=== PATIENT | female | born 1990 | race Caucasian/White ===

== ENCOUNTER 2019-09-02 14:30 | Outpatient (CLI) | payer OTHER ==
--- NOTE | 2019-09-02 14:04 | SLEEP CARE CONSULTATION ---
Information from patient questionnaire entered by Christel Guerra. I have reviewed and concur with the information entered by Christel Guerra. This document represents the service I personally performed and the decisions made by me, Cherie Sena MD, [facility]. History of Present Illness Service Date and Time: 09/02/2019 1400 Reason for Visit: New patient Chief Complaint: reports: Unrefreshed sleep, Snoring, Excessive daytime sleepiness, Observed pauses in breathing, Fatigue, Frequent awakenings at night Duration of Symptoms: 8 months Usual bedtime: 8 - 9 pm (shift changes often) Time it takes to fall asleep: 60-180 minutes Snores at night: Yes Observed to quit breathing while asleep: Yes Sleeps alone due to snoring: No (no spouse/partner) Number of times waking at night: 2-4 Reasons for waking at night: reports: Snoring, Gasping for air Toss, Turn, or Twitch while sleeping: Yes Recalls having dreams: No Usually gets out of bed at: 4 - 4:30 am Feels refreshed in the morning: No Morning headache: No Sleepy or fatigued during the day: Yes Ever fallen asleep while driving: No Takes day naps: Yes Dreams during day naps: No Prior sleep studies: No Additional HPI information: I had the pleasure of seeing Ms. Ayala today regarding the possibility of her having a sleep disorder. As you know, she is a 29 year old lady who complains of loud snore, frequent awakenings, unrefreshed sleep, and excessive daytime sleepiness for the past 8 months. The patient tells me that she normally goes to bed around 8 - 9 pm, and it takes her approximately 1 - 3 hours to fall asleep. She has been told that she snores loudly and irregularly at night. She has also been observed to stop breathing in her sleep. Her bed partner can still sleep in the same bed. She can recall waking up on the average of 2 - 4 times during the night. Most of the time she wakes up because of her own snoring, choking, and having to gasp for air. There is not a lot of tossing and turning in her sleep. No somniloquy (sleep talking) or somnambulism (sleep walking). Generally there is no recollection of dreams. In the morning she usually gets up out of the bed around 4 4:30 a.m. not feeling refreshed nor rested. She usually does not have a morning headache. During the day she complains of feeling sleepy and fatigued. Her score on [place] Sleepiness Scale is 14 out of 24. She has never fallen asleep while driving nor has had any accident due to sleepiness. She usually takes naps during the day. Upon falling asleep during the day she denies having vivid dreams. She has never had sleep paralysis, experienced cataplexy but symptoms of restless leg syndrome. She reports having impaired concentration during the day. - Parasomnia Symptoms Ever been unable to move upon waking from sleep: No Ever felt weak in the knees when startled or emotional: No Bothered by creepy, crawly, restless sensations in legs: Yes Problems with memory or concentration: Yes Subjective Initial [place] Sleepiness Scale score: 14 Social History The patient's occupation is a [employer]. Patient is Single and lives in [place]. Have you smoked in the past 12 months: No Alcohol use: Yes Alcohol amount and frequency: 1 drink once a week, if that Caffeine use: Yes Caffeine amount and frequency: 1-2 cups of coffee in the morning Family History Family history of sleep disordered breathing: Yes Family Hx Sleep Apnea: Father: Snoring, Sleep apnea - Treated Allergies and Home Medications Drug allergies reviewed: Yes (NKDA) Home medication list reviewed: Yes (none) Review of Systems Weight gain over past 5 years: 30-40 Cardiovascular: reports: palpitations Respiratory: reports: shortness of breath Ear/Nose/Throat: reports: wisdom teeth removed Endocrine: reports: sluggishness, unexplained weakness Musculoskeletal: reports: neck pain, back pain, muscle pain or cramping Immunologic: reports: sneezing Physical Exam Height: 5 ft 5 in Weight: 175 lb Body Mass Index: 29.1 BMI Classification: Overweight Impression and Plan IMPRESSION: 1. Obstructive Sleep Apnea-Hypopnea Syndrome, as suggested by history of loud and irregular snoring, observed cessation of breath while asleep, frequent awakenings during the night, unrefreshed sleep, cognitive impairment, and daytime hypersomnolence. Narrow oropharynx and obesity are common predisposing factors for obstructive sleep apnea-hypopnea syndrome. Pathophysiology of sleep-disordered breathing was discussed. I recommend proceeding to polysomnography to confirm the diagnosis and to assess severity. If she has significant sleep disordered breathing, a manual CPAP titration study will also be performed to find the optimal treatment pressure. I informed the patient of what the sleep studies involve and after some discussion, she agreed to proceed. Plan: 1. Schedule polysomnography + manual CPAP titration study. 2. Avoid long distance driving or when feeling sleepy. 3. Avoid alcohol, sedative and muscle relaxant around bedtime. 4. Attempt to lose weight. 5. Return in 1 to 2 weeks after the study to discuss results and initiate therapy. Video Type: Qudini Patient Location: Home Location of Provider: Home Patient agrees and consents to this telehealth visit type: Yes Patient agrees to have their insurance billed: Yes Time Spent with Patient (minutes): 15
== END 2019-09-02 14:31 | disposition home or self-care (01) ==
LOC: SC 14:30
PROVIDERS: ATTEND Internal Medicine Pulmonary Disease
DX: R06.83 Snoring (principal); G47.8 Other sleep disorders; R06.81 Apnea, not elsewhere classified; G47.10 Hypersomnia, unspecified; G47.00 Insomnia, unspecified; R53.83 Other fatigue; E66.3 Overweight; Z68.29 Body mass index [BMI] 29.0-29.9, adult

== ENCOUNTER 2019-10-07 19:11 | Outpatient (CLI) | payer OTHER | END 2019-10-07 19:12 | disposition home or self-care (01) | LOC: SC 19:11 | PROVIDERS: ATTEND Internal Medicine Pulmonary Disease | DX: G47.33 Obstructive sleep apnea (adult) (pediatric) (principal) | CPT/HCPCS: 95810 ==

== ENCOUNTER 2019-10-29 09:32 | Outpatient (CLI) | payer OTHER ==
--- NOTE | 2019-10-29 09:37 | SLEEP CARE CONSULTATION ---
History of Present Illness Service Date and Time: 10/29/2019 0932 Initial [place] Sleepiness Scale score: 14 Additional HPI information: To minimize the risk of COVID-19 exposure, the patient has requested and consented to this telephone visit. The patient also agrees to having her insurance billed. HPI: Ms. Ayala was called for follow up of the sleep study she had on 10-07-19. The polysomnography showed that the patient had normal sleep efficiency. Despite moderate sleep fragmentation, the sleep architecture was normal as well. Respiratory monitoring showed moderate obstructive sleep apnea- hypopnea (AHI = 17.6) associated with frequent arousals, oxyhemoglobin desaturation and mild hypoxia (ariel oxygen saturation of 87%). The respiratory events occurred almost exclusively during supine sleep (supine AHI = 25.3; non- supine = 3.77). Snore was loud in intensity. There was no significant periodic leg movement of sleep. Cardiac rhythm was normal sinus rhythm without significant arrhythmia. No abnormal behavior (parasomnia) observed during the night. The patient was informed of these findings. I explained to her the pathophysiology behind obstructive sleep apnea. We then spent quite a bit of time discussing different treatment options. For mild obstructive sleep apnea, surgery and oral appliance are alternatives to nasal CPAP therapy but in moderate or severe cases, nasal CPAP is the most effective and reliable treatment. After some discussion, she opted to go with the nasal CPAP therapy. I explained to her how CPAP machine works and what to expect when using the machine. IMPRESSION: 1. Obstructive Sleep Apnea-Hypopnea Syndrome, moderate, associated with mild hypoxemia and sleep fragmentation. Most likely, this is the cause of the patients symptoms of unrefreshed sleep, and excessive daytime sleepiness. As mentioned above, the patient will be scheduled for a manual CPAP/BiPAP titration study. PLAN: 1. Schedule a manual CPAP/BiPAP titration study. 2. Attempt to lose weight. 3. Be careful when driving until her sleepiness resolves completely on nasal CPAP therapy. 4. Return for follow up after the titration study. I spent 100% of the 15 minute phone call with the patient with greater than 50% of this spent counseling the patient and coordination of care. The patient was at home and the provider was in the office. Physical Exam Height: 5 ft 5 in Impression and Plan Visit Type: Telehealth Video Video Type: Chikka Patient Location: Home Location of Provider: Office Patient agrees and consents to this telehealth visit type: Yes Patient agrees to have their insurance billed: Yes Time Spent with Patient (minutes): 15 Provider Statement: I spent 100% of the Telehealth Video Call with the patient with greater than 50% spent counseling the patient and coordination of care.
== END 2019-10-29 09:33 | disposition home or self-care (01) ==
LOC: SC 09:32
PROVIDERS: ATTEND Internal Medicine Pulmonary Disease
DX: G47.33 Obstructive sleep apnea (adult) (pediatric) (principal)

== ENCOUNTER 2019-12-27 20:30 | Outpatient (CLI) | payer OTHER | END 2019-12-27 20:31 | disposition home or self-care (01) | LOC: SC 20:30 | PROVIDERS: ATTEND Internal Medicine Pulmonary Disease | DX: G47.33 Obstructive sleep apnea (adult) (pediatric) (principal) | CPT/HCPCS: 95811 ==

== ENCOUNTER 2020-01-16 11:41 | Outpatient (CLI) | payer OTHER ==
--- NOTE | 2020-01-16 12:04 | SLEEP CARE CONSULTATION ---
Information from patient questionnaire entered by Christel Guerra. I have reviewed and concur with the information entered by Christel Guerra. This document represents the service I personally performed and the decisions made by , Mindy Patel ARNP. History of Present Illness Service Date and Time: 01/16/2020 1141 Initial [place] Sleepiness Scale score: 14 (in 2019) Current [place] Sleepiness Scale score: 12 Additional HPI information: [facility] retruns for follow up of the sleep study with a manual CPAP titration study performed on 12-27-19. The patient was informed of the following polysomnography findings: I explained that the optimal CPAP pressure is 10 cm H2O. I explained how CPAP machine works with sample devices [employer] Dreamstation and [employer] [id number] and what to expect when using the machine. Using CPAP every night in order to get used to it was emphasized. Patient advised to put CPAP mask on before getting into bed so as not to fall asleep without CPAP. To assist acclimation to CPAP use, it could also be used for a short time during day while reading or watching TV. The patient was instructed to call the CPAP supplier to discuss any mechanical problem that may occur. If the mask given is uncomfortable or is difficult to keep on through the night even with adjustment, contact the CPAP supplier as many will replace with another mask style if notified before 30 days. If snoring or perceives is not getting enough air or too much air from the machine, notify this office. [facility] patient education PAP tips reviewed and given to patient. Patient does not drink alcohol right now because she is 9 weeks with her first child. Patient was cautioned about risks of drowsy driving until sleepiness symptoms resolve. Sleep Study - Results Type of Sleep Study: Polysomnography (titration) Prior sleep studies: No Polysomnography/Home Sleep Study results: IMPRESSION: The quality of the study is good. CPAP was initiated at 4 cmH2O and titrated up to CPAP at 11 cmH2O. CPAP at 10 cmH2O appeared to be optimal (AHI of 0 per hour on the pressure). There was supine REM sleep on the pressure. Oxygen saturation was normal throughout the night. Lower CPAP settings appeared adequate as well. The patient appeared to have tolerated positive airway pressure therapy very well. The patients sleep efficiency was normal. The sleep architecture was also normal.. There was no significant periodic leg movement of sleep. Cardiac rhythm was normal sinus rhythm without significant arrhythmia. No abnormal behavior (parasomnia) observed during the night. Allergies and Home Medications Drug allergies reviewed: Yes (NKDA) Home medication list reviewed: Yes (no changes) Review of Systems Review of systems same as previous: Yes (no changes, 9 weeks ) Physical Exam Heart Rate: 91 O2 Saturation: 98 Height: 5 ft 5 in Weight: 191 lb Body Mass Index: 31.8 BMI Classification: Obese Impression and Plan 1. Obstructive Sleep Apnea-Hypopnea Syndrome, moderate. Her titration study showed good control of her apnea at 10 cm H2O. Positive pressure therapy could benefit her overall health. Patient is 9 weeks . The patient will be started on nasal autoCPAP therapy with pressure set at 5-10 cmH2O. Compliance guidelines also reviewed. A copy of compliance guidelines will be given for reference at check out. Because the apnea is more severe supine, I instructed to avoid sleeping supine using pillow positioning until able to start CPAP use. * Nasal auto CPAP therapy, pressure at 5-10 cm H2O. * Avoid supine sleep until using CPAP. * The patient is again cautioned about driving until sleepiness completely resolves. * Return one month after CPAP obtained. I will assess response to therapy and compliance at that time. Visit Type: In Office Time Spent with Patient (minutes): 15 Provider Statement: I spent 100% of the Face to Face Visit with the patient with greater than 50% spent counseling the patient and coordination of care.
== END 2020-01-16 11:42 | disposition home or self-care (01) ==
LOC: SC 11:41
PROVIDERS: ATTEND Nurse Practitioner Family
DX: G47.33 Obstructive sleep apnea (adult) (pediatric) (principal); E66.9 Obesity, unspecified; Z68.31 Body mass index [BMI] 31.0-31.9, adult
CPT/HCPCS: 99212; 99213

== ENCOUNTER 2020-03-26 10:34 | Outpatient (CLI) | payer OTHER ==
--- NOTE | 2020-03-26 11:13 | SLEEP CARE CONSULTATION ---
Information from patient questionnaire entered by Christel Guerra. I have reviewed and concur with the information entered by Christel Guerra. This document represents the service I personally performed and the decisions made by , Mindy Patel ARNP. History of Present Illness Service Date and Time: 03/26/2020 1034 Previous diagnosis: Moderate, Obstructive Sleep Apnea-Hypopnea Syndrome AHI: 17.6 (in 2019) Reason for follow up: first compliance Equipment type: CPAP Equipment obtained from: [employer] (no further supplies received yet) Mask style: Nasal Backup mask available: Yes (other mask) Last cushion change: 6 week Prior sleep studies: Yes Year and Where: 2019 - [facility] Type of Sleep Study: Polysomnography HPI additional information: [facility] was diagnosed to have moderate, AHI 17.6, obstructive sleep apnea-hypopnea syndrome and returned today for CPAP therapy first compliance follow-up. CPAP Compliance Data - Data Reviewed with Patient Average duration of nightly device use: 7 hours 6 minutes Compliance rate %: 96.7 Current pressure setting (cmH2O): 5-10 Humidity settin Heated hose settin Average residual AHI: 2.1 Average large leak: 0 seconds Subjective Missed days of use due to: reports: travel Patient concerns: reports: condensation in mask/hose. denies: aerophagia, mask discomfort, air blowing in eyes, mask leak noise, nasal congestion, dry mouth, nose, throat, epistaxis, other Observed to snore while using device: No Current pressure setting perceived as: comfortable On therapy, patient: reports: sleeping better, awakening more refreshed, being more awake and alert during the day, more rested overall. denies: drowsiness while driving Initial [place] Sleepiness Scale score: 14 (in 2019) Current [place] Sleepiness Scale score: 2 Allergies and Home Medications Drug allergies reviewed: Yes (NKDA) Home medication list reviewed: Yes (no changes) Review of Systems Review of systems same as previous: Yes (no changes, 19 weeks) Physical Exam Heart Rate: 105 O2 Saturation: 98 Height: 5 ft 5 in Weight: 207 lb Body Mass Index: 34.4 BMI Classification: Obese Impression and Plan 1. Obstructive Sleep Apnea-Hypopnea Syndrome, moderate, with good treatment compliance and good apnea control. On CPAP therapy, the patient has better sleep quality and is more rested overall. Patient is 19 weeks . She has had some issue with condensation in the mask. I instructed patient on how to adjust her humidity and heated hose to reduce condensation. She voiced understanding. I will keep patient pressure at the 5-19 cmH2O since she is doing well and this should accommodate for weight gain during her . Patient's apnea severity and rationale for treatment to reduce apnea, improve sleep quality and reduce cardiovascular and cerebrovascular events was reviewed. * Continue autoCPAP pressure at 5-10 cmH2O * Notify me if snoring with mask or feeling that the pressure is too much or too little * Attempt to lose weight * Call this office if any problems using CPAP * Return for follow up in 3 months, or sooner if concerns arise Counseling Topics: Spare mask Visit Type: In Office Time Spent with Patient (minutes): 18 Provider Statement: I spent 100% of the Face to Face Visit with the patient with greater than 50% spent counseling the patient and coordination of care.
== END 2020-03-26 10:35 | disposition home or self-care (01) ==
LOC: SC 10:34
PROVIDERS: ATTEND Nurse Practitioner Family
DX: G47.33 Obstructive sleep apnea (adult) (pediatric) (principal); E66.9 Obesity, unspecified; Z68.34 Body mass index [BMI] 34.0-34.9, adult
CPT/HCPCS: 99212; 99213

== ENCOUNTER 2020-03-29 08:30 | Outpatient (CLI) | payer OTHER ==
--- NOTE | 2020-03-29 17:45 | Ultrasound Report ---
PROCEDURE: OB Detailed Eval INDICATIONS: SCREENING OUTSIDE/PRIOR DATING DATA: Last menstrual period (LMP): Unknown. LMP-based estimated date of delivery (KATHERINE): Unknown at this time. First dating scan (date and location): [facility]- Requested. Estimated date of delivery (KATHERINE) from first dating scan: 08/16/2020 based on today's ultrasound. TECHNIQUE: Real-time scanning was performed of the fetus, with image documentation and biometric measurements. Endovaginal scanning: Not performed COMPARISON: None available. FINDINGS: General: A single living intrauterine gestation is present. Presentation: Variable Placenta: Placental position is posterior, without previa. Amniotic fluid index: 14 cm, normal for gestational age. heart rate: 40 beats per minute. Maternal cervical canal: 6 cm long; normal length is 2.5 cm or more. No funneling. biometrics: Biparietal diameter: 4.6 cm, 19 weeks 5 days Head circumference: 17.5 cm, 20 weeks 0 days Abdominal circumference: 15.1 cm, 20 weeks 2 days Femur length: 13.1 cm, 19 weeks 4 days Estimated gestational age from initial scan: Unknown at this time. Composite gestational age from present scan: 20 weeks 0 days Estimated weight: 324 g Measurement variability in biometric dating: +/- 10 days from 12-20 weeks gestation, +/- 2 weeks from 20-30 weeks gestation, +/- 3 weeks at 30 weeks gestation or later. Anatomic survey: Neuro: Ventricles are normal at less than 10 mm. Cisterna magna is normal at 3-11 mm. Cerebellum i s normal in size and morphology. Nuchal skin fold: Normal at less than 6 mm between 14 and 20 weeks gestational age. Face: Nose and lips, facial profile are normal. Spine: No evidence for spina bifida. Heart: 4-chambered heart is present, with normal ventricular outflow tracts. Diaphragm: Diaphragm is intact. Stomach: Left-sided stomach is present. Kidneys: No hydronephrosis. Normal is less than 5 mm in 2nd trimester, less than 7 mm in 3rd trimester. Cord: 3 vessel cord has orthotopic insertion. Bladder: Normal in size. Extremities: All 4 extremities are visualized. Right ovary corpus luteum measuring 2 cm. Left ovary exophytic anechoic cyst measuring 3.1 x 1.5 x 1. 5 cm. No internal blood flow. IMPRESSION: 1. Monge living intrauterine at 20 weeks 0 days based on today's ultrasound. 2. Normal placenta and amniotic fluid. 3. Normal and complete anatomic survey. 4. Left ovarian simple cyst measuring 2.1 cm. Right corpus luteum measuring 2 cm. Reviewed by: Mehdi Seo MD on 03/29/2020 4:44 PM [facility] Approved by: Mehdi Seo MD on 03/29/2020 4:44 PM [facility] Station ID: [id number]
== END 2020-03-29 08:31 | disposition home or self-care (01) ==
LOC: DI 08:30
PROVIDERS: ATTEND Nurse Practitioner Obstetrics & Gynecology
DX: Z36.89 Encounter for other specified antenatal screening (principal)

== ENCOUNTER 2020-05-01 14:47 | Emergency (ER) | payer OTHER ==
--- NOTE | 2020-05-01 15:40 | ED Physician Documentation ---
History of Present Illness - Stated complaint Stated Complaint: CARBON MONOXIDE EXPOSURE - Chief complaint Chief Complaint: General - History obtained from History obtained from: Patient - History of Present Illness Timing: Today Pain level max: 0 Pain level now: 0 - Additonal information Additional information: Patient is a 30-year-old female, 24 weeks who presents to the emergency department after her carbon monoxide detector went off yesterday at home. She has been asymptomatic. She states that there is potentially decreased movement today, therefore came in for evaluation. No vaginal bleeding or discharge. Nothing makes it better or worse Review of Systems Constitutional: denies: Fever, Chills Respiratory: denies: Cough GI: denies: Vomiting, Diarrhea Skin: denies: Rash Musculoskeletal: denies: Neck pain, Back pain Neurologic: denies: Headache PD PAST MEDICAL HISTORY - Past Medical History Past Medical History: No - Past Surgical History Past Surgical History: No - Allergies Allergies/Adverse Reactions: Allergies Allergy/AdvReac Type Severity Reaction Status Date / Time No Known Drug Allergies Allergy Verified 05/01/20 14:53 - Living Situation Living Arrangement: reports: At home PD ED PE NORMAL - Vitals Vital signs reviewed: Yes - General General: Alert and oriented X 3, No acute distress - HEENT HEENT: Moist mucous membranes - Neck Neck: Supple, no meningeal sign - Cardiac Cardiac: RRR - Respiratory Respiratory: No respiratory distress, Clear bilaterally - Abdomen Abdomen: Soft, Non tender, Other (Gravid) - Derm Derm: Warm and dry - Extremities Extremities: No edema, No calf tenderness / cord - Neuro Neuro: Alert and oriented X 3 - Psych Psych: Normal mood, Normal affect Results - Vitals Vitals: Vital Signs - 24 hr 05/01/20 14:49 Temperature 36.8 C Heart Rate 111 H Respiratory 18 Rate Blood Pressure 140/89 H O2 Saturation 98 Oxygen O2 Source Room air - Labs Labs: Laboratory Tests 05/01/20 15:03 VBG Total Hgb 11.9 L VBG Oxyhemoglobin 55 L VBG Carboxyhemoglobin 0.9 VBG Methemoglobin 0.3 PD MEDICAL DECISION MAKING - ED course Complexity details: considered differential, d/w patient ED course: Normal carbon monoxide levels here. Normal heart tones. Discussed the case with Dr. Tay, OB on-call, no indication for NST at this time. Especially given the patient's gestational age, would likely be of little to no benefit. Patient counseled regarding signs and symptoms for which I believe and urgent re-evaluation would be necessary. Patient with good understanding of and agreement to plan and is comfortable going home at this time This document was made in part using voice recognition software. While efforts are made to proofread this document, sound alike and grammatical errors may occur. Departure - Departure Disposition: 01 Home, Self Care Clinical Impression: Carbon monoxide exposure Condition: Good Instructions: ED CO Poisoning Follow-Up: Evelin Tay MD [Provider Admit Priv/Credential] - Within 1 week Comments: Your carbon monoxide levels are normal. Your heart rate is normal. The case was discussed with OB on-call, Dr. Tay. She will follow you up in the office. Return if you worsen
[2020-05-01 15:45] VITALS: BP 121/76
== END 2020-05-01 15:46 | disposition home or self-care (01) ==
LOC: ED 14:47
DX: O9A.211 Injury, poisoning and certain other consequences of external causes complicating pregnancy, first trimester (principal); T58.91XA Toxic effect of carbon monoxide from unspecified source, accidental (unintentional), initial encounter; Z3A.24 24 weeks gestation of pregnancy
CPT/HCPCS: 36415; 82375; 99283

== ENCOUNTER 2020-05-20 08:00 | Outpatient (CLI) | payer OTHER ==
[2020-05-20 10:00] LABS: HGB - HEMOGLOBIN 10.9 g/dL (12.0-16.0); MEAN CORPUSCULAR HEMOGLOBIN 30.9 pg (27.0-31.0); MEAN CORPUSCULAR HGB CONC 31.5 g/dL (32.0-36.0); MEAN PLATELET VOLUME 9.4 fL (7.9-10.8); RED BLOOD COUNT 3.53 10^6/uL (4.20-5.40); RED CELL DISTRIBUTION WIDTH 14.5 % (12.0-15.0); WHITE BLOOD COUNT 16.9 x10^3/uL (4.8-10.8)
== END 2020-05-20 23:59 | disposition home or self-care (01) ==
LOC: LAB 08:00
PROVIDERS: ATTEND Obstetrics & Gynecology
DX: Z34.90 Encounter for supervision of normal pregnancy, unspecified, unspecified trimester (principal)
CPT/HCPCS: 36415; 82950; 85027

== ENCOUNTER 2020-05-27 08:00 | Outpatient (CLI) | payer OTHER | END 2020-05-27 23:59 | disposition home or self-care (01) | LOC: LAB 08:00 | PROVIDERS: ATTEND Obstetrics & Gynecology | DX: O99.810 Abnormal glucose complicating pregnancy (principal) | CPT/HCPCS: 36415; 82951; 82952 ==

== ENCOUNTER 2020-06-11 15:32 | Outpatient (CLI) | payer OTHER ==
--- NOTE | 2020-06-13 14:03 | Ultrasound Report ---
PROCEDURE: OB F/U or Repeat INDICATIONS: UTERINE SIZE-DATE DISCREPANCY OUTSIDE/PRIOR DATING DATA: Last menstrual period (LMP): Unknown LMP-based estimated date of delivery (KATHERINE): Unknown. First dating scan (date and location): [facility]. Estimated date of delivery (KATHERINE) from first dating scan: 08/16/2020 based on prior OB ultrasound. TECHNIQUE: Real-time scanning was performed of the fetus, with image documentation and biometric measurements. Endovaginal scanning: No COMPARISON: 03/29/2020 FINDINGS: General: A single living intrauterine gestation is present. Presentation: Cephalic Placenta: Placental position is posterior, without previa. Amniotic fluid index: 20.5 cm, 87th percentile for gestational age. heart rate: 121 beats per minute. Maternal cervical canal: 4.5 cm long; normal length is 2.5 cm or more. biometrics: Biparietal diameter: 82 mm; 33 weeks 0 days Head circumference: 295 mm; 32 weeks 4 days Abdominal circumference: 290 mm; 33 weeks 0 days Femur length: 55 mm; 29 weeks 1 day Estimated gestational age from initial scan: not applicable. Composite gestational age from present scan: 32 weeks 0 days Estimated weight and percentile: 1842 g, which is at the 83rd percentile for gestational age Measurement variability in biometric dating: +/- 10 days from 12-20 weeks gestation, +/- 2 weeks from 20-30 weeks gestation, +/- 3 weeks at 30 weeks gestation or more. Other: Not applicable. IMPRESSION: 1. Single living intrauterine gestation. 2. Estimated weight is at the 83rd percentile for gestational age. 3. Amniotic fluid index is at the 86th percentile for gestational age. Reviewed by: Deon Elizalde MD on 06/13/2020 1:02 PM [facility] Approved by: Deon Elizalde MD on 06/13/2020 1:02 PM [facility] Station ID: [id number]
== END 2020-06-11 15:33 | disposition home or self-care (01) ==
LOC: DI 15:32
PROVIDERS: ATTEND Nurse Practitioner Obstetrics & Gynecology
DX: O26.843 Uterine size-date discrepancy, third trimester (principal); Z3A.32 32 weeks gestation of pregnancy

== ENCOUNTER 2020-06-22 09:59 | Outpatient (CLI) | payer OTHER ==
--- NOTE | 2020-06-22 10:23 | SLEEP CARE CONSULTATION ---
Information from patient questionnaire entered by Christel Guerra. I have reviewed and concur with the information entered by Christel Guerra. This document represents the service I personally performed and the decisions made by me, Cherie Sena MD, [facility]. History of Present Illness Service Date and Time: 06/22/2020 0959 Previous diagnosis: Moderate, Obstructive Sleep Apnea-Hypopnea Syndrome AHI: 17.6 (in 2019) Reason for follow up: three month Equipment type: CPAP Equipment obtained from: [facility] (no further supplies received yet) Mask style: Nasal Prior sleep studies: Yes Year and Where: 2019 - [facility] Type of Sleep Study: Polysomnography HPI additional information: HPI: Ms. Ayala was diagnosed to have moderate obstructive sleep apnea- hypopnea syndrome and prescribed with a CPAP device. She returned today for follow up of CPAP therapy. The patient purchased the device from [facility] and was fitted with Respironics DreamWisp nasal mask. She uses the device nightly and all through the night. The compliance data show usage in 87 out of the past 90 nights, averaging 6.3 hours a night. The residual AHI is 3.4; and average air leak is 0 L/minute. She complains of no particular problem such as dry throat, facial soreness, aerophagia, sinus pain, or nasal congestion. She thinks that the current pressure of 5 - 10 cmH2O seems alright. Since she started using the CPAP device she noticed significant improvement in her sleep quality, and that she wakes up feeling fresher in the morning and more awake/alert during the day. [place] Sleepiness Scale score is 3. CPAP Compliance Data - Data Reviewed with Patient Average duration of nightly device use: 6 hr 18 min Compliance rate %: 88.9 (90 days) Current pressure setting (cmH2O): 5-10 Humidity settin Heated hose settin Average residual AHI: 3.4 Average large leak: 0 Subjective Missed days of use due to: reports: other () Current pressure setting perceived as: comfortable Initial [place] Sleepiness Scale score: 14 (in 2019) Current [place] Sleepiness Scale score: 3 Allergies and Home Medications Drug allergies reviewed: Yes Home medication list reviewed: Yes Review of Systems Review of systems same as previous: Yes (except being ) Physical Exam Height: 5 ft 1 in Weight: 200 lb Body Mass Index: 37.8 BMI Classification: Obese Impression and Plan IMPRESSION: 1. Obstructive Sleep Apnea-Hypopnea Syndrome, moderate (AHI was 17.6), with the patient doing very well on the CPAP therapy. She good compliance. The current pressure setting appears effective and comfortable. No adjustment is necessary today. PLAN: 1. Continue with autoCPAP set at 5 - 10 cm H2O. 2. Try Respironics DreamWear nasal cushion mask and ResMed N30i mask. 3. Return in one year for follow up or earlier if there is any problem with the treatment. Follow up recommended for: Weight management Visit Type: In Office Time Spent with Patient (minutes): 15 Provider Statement: I spent 100% of the Face to Face Visit with the patient with greater than 50% spent counseling the patient and coordination of care.
== END 2020-06-22 10:00 | disposition home or self-care (01) ==
LOC: SC 09:59
PROVIDERS: ATTEND Internal Medicine Pulmonary Disease
DX: G47.33 Obstructive sleep apnea (adult) (pediatric) (principal); E66.9 Obesity, unspecified; Z68.37 Body mass index [BMI] 37.0-37.9, adult
CPT/HCPCS: 99212

== ENCOUNTER 2020-07-21 07:33 | Outpatient (CLI) | payer OTHER ==
--- NOTE | 2020-07-21 15:17 | Ultrasound Report ---
PROCEDURE: OB F/U or Repeat INDICATIONS: UTERINE SIZE-DATE DISCREPANCY, 3RD TRIMESTER OUTSIDE/PRIOR DATING DATA: Last menstrual period (LMP): Unknown. LMP-based estimated date of delivery (KATHERINE): Not applicable. First dating scan (date and location): Per provider, 01/22/2020 [facility]. Estimated date of delivery (KATHERINE) from first dating scan: 08/17/2020 provider stated. TECHNIQUE: Real-time scanning was performed of the fetus, with image documentation and biometric measurements. Endovaginal scanning: Not performed COMPARISON: 03/29/2020, 06/11/2020 FINDINGS: General: A single living intrauterine gestation is present. Presentation: Vertex Placenta: Placental position is fundal, without previa. Amniotic fluid index: 13.9 cm, normal for gestational age. 8.7 cm the largest pocket heart rate: 145 beats per minute. Maternal cervical canal: 3.6 cm long; normal length is 2.5 cm or more. biometrics: Biparietal diameter: 9.4 cm, 38 weeks, 2 days 97th percentile Head circumference: 33.3 cm, 38 weeks, 1 day 68th percentile Abdominal circumference: 34.6 cm, 38 weeks, 3 days 98th percentile Femur length: 6.67 m, 34 weeks, 0 days 5th percentile Estimated gestational age from initial scan: 36 weeks, 1 day. Composite gestational age from present scan: 37 weeks, 2 days Estimated weight and percentile: 3194 g, 83rd percentile Measurement variability in biometric dating: +/- 10 days from 12-20 weeks gestation, +/- 2 weeks from 20-30 weeks gestation, +/- 3 weeks at 30 weeks gestation or more. Other: Not applicable. IMPRESSION: 1. Single living intrauterine . 2. There has been asymmetric growth since the initial 20 week ultrasound with abnormally short femur length and large head and abdominal measurements. This should be correlated with biparental height. S keletal dysplasias cannot be excluded. 3. Normal amniotic fluid volume. Reviewed by: Ann-Marie Velazquez MD on 07/21/2020 2:15 PM IRA Approved by: Ann-Marie Velazquez MD on 07/21/2020 2:15 PM AKTATIANA Station ID: [id number]
== END 2020-07-21 07:34 | disposition home or self-care (01) ==
LOC: DI 07:33
PROVIDERS: ATTEND Advanced Practice Midwife
DX: O26.843 Uterine size-date discrepancy, third trimester (principal); Z3A.37 37 weeks gestation of pregnancy

== ENCOUNTER 2020-07-27 08:00 | Outpatient (CLI) | payer OTHER | END 2020-07-27 23:59 | disposition home or self-care (01) | LOC: LAB.R 08:00 | PROVIDERS: ATTEND Advanced Practice Midwife | DX: Z34.90 Encounter for supervision of normal pregnancy, unspecified, unspecified trimester (principal); Z36.89 Encounter for other specified antenatal screening | CPT/HCPCS: 87797 ==

== ENCOUNTER 2020-08-08 14:51 | Outpatient (CLI) | payer OTHER ==
[2020-08-08 15:56] LABS: BASOPHILS # (AUTO) 0.1 10^3/uL (0.0-0.1); BASOPHILS % (AUTO) 0.3 %; EOSINOPHILS # (AUTO) 0.3 10^3/uL (0.0-0.7); EOSINOPHILS % (AUTO) 2.3 %; HGB - HEMOGLOBIN 12.2 g/dL (12.0-16.0); LYMPHOCYTES # (AUTO) 2.2 10^3/uL (1.5-3.5); LYMPHOCYTES % (AUTO) 14.6 %; MEAN CORPUSCULAR HEMOGLOBIN 30.7 pg (27.0-31.0); MEAN CORPUSCULAR VOLUME 93.2 fL (81.0-99.0); MEAN PLATELET VOLUME 9.7 fL (7.9-10.8); MONOCYTES # (AUTO) 0.9 10^3/uL (0.0-1.0); MONOCYTES % (AUTO) 5.9 %; NEUTROPHILS # (AUTO) 11.1 10^3/uL (1.5-6.6); NEUTROPHILS % (AUTO) 74.3 %; PLT - PLATELET COUNT 260 10^3/uL (130-450); RED BLOOD COUNT 3.97 10^6/uL (4.20-5.40); RED CELL DISTRIBUTION WIDTH 15.9 % (12.0-15.0)
[2020-08-08 16:09] LABS: ALBUMIN 2.9 g/dL (3.2-5.5); ALBUMIN/GLOBULIN RATIO 0.7 (1.0-2.2); BILIRUBIN,TOTAL 0.4 mg/dL (0.2-1.0); CALCIUM 9.3 mg/dL (8.5-10.3); CREATININE 0.7 mg/dL (0.4-1.0); POTASSIUM 3.8 mmol/L (3.5-5.0); TOTAL PROTEIN 6.9 g/dL (6.7-8.2)
[2020-08-08 16:30] LABS: CREATININE,URINE 17.4 mg/dL
[2020-08-08 16:38] LABS: TOTAL PROTEIN,URINE TIMED < 6 mg/dL
[2020-08-08 16:49] VITALS: BP 111/73
--- NOTE | 2020-08-09 09:38 | PROVIDER PROGRESS NOTE ---
- HPI Chief Complaint: Decreased movement Current : Current EDU 08/20/20 Gestation 38 Weeks and 2 Days 1 Para 0 Vital Signs Blood Pressure 145/85 H 08/08/20 15:05 Temperature 36.9 C 08/08/20 15:22 Heart Rate 100 08/08/20 15:22 Respiratory Rate 18 08/08/20 15:22 Blood Pressure 111/73 08/08/20 16:49 O2 Saturation 100 08/08/20 15:22 - Procedures OB Procedure Performed: NST Diagnosis/Indication for NST: Decreased movement NST Procedure: NST Procedure Start Date 08/08/20 Start Time 15:00 Stop Time 15:35 Vibroacoustic Stimulation Used No - Plan Plan: Visit date: 08/08/2020 Pt evaluated face to face. Sapphire is a 30yo @ 38.6wks gestation who presents to [facility] with c/o decreased movement. Upon arrival she was noted to have elevated BPs 140/80s-90s. She reported a mild headache yesterday afternoon when she woke up from a nap which has since resolved. She denies visual disturbances or RUQ pain. Experiencing mild edema to LE's bilaterally however this has been present for the past several weeks and has not gotten progressively worse. She denies vaginal bleeding or leakage of fluid. She reports intermittent BH contractions but nothing overly uncomfortable or consistent. She reports movement has increased since she has been here. O: BP 140/80s-90s NST performed 08/08/2020 NST read 08/08/2020 NST reactive. FHR baseline 135, moderate variability, + accels, no decels Contractions palpate mild, intermittently Normocephalic, atraumatic, heart RRR w/o M/G/R, lungs CTAB, abdomen soft and nontender, no RUQ pain noted, bilateral LE's no edema. SVE deferred. A: 30yo @ 38.6wks gestation Decreased movement Elevated BP without the diagnosis of hypertension FHR Category I P: Closely reviewed PIH warning s/sx and when to present urgently. Plan return to [facility] for BP check tomorrow - if elevated, this will diagnose her with gestational hypertension and she will be admitted for induction of labor. Pt requests elective IOL if BP not elevated and would prefer outpatient cervical ripening as appropriate. Will develop plan of care tomorrow upon her return. Pt has emergency contact number. Reviewed warning s/sx and when to present. Pt verbalized understanding and agrees to above plan. She denies further questions or concerns at this time.
== END 2020-08-08 17:15 | disposition home or self-care (01) ==
LOC: WFO 14:51 → FBP 14:53 → WFO 17:15
PROVIDERS: ATTEND Nurse Practitioner Obstetrics & Gynecology
DX: O36.8130 Decreased fetal movements, third trimester, not applicable or unspecified (principal); Z3A.38 38 weeks gestation of pregnancy; O26.893 Other specified pregnancy related conditions, third trimester; R03.0 Elevated blood-pressure reading, without diagnosis of hypertension
CPT/HCPCS: 36415; 59025; 80053; 82570; 84156; 85025; 99214

== ENCOUNTER 2020-08-09 07:52 | Observation (INO) | payer OTHER ==
[2020-08-09 08:23] VITALS: BP 114/76
[2020-08-09] MEDS ORDERED: miSOPROStoL 100 MCG TABLET BC SCH (08:30)
--- NOTE | 2020-08-09 10:33 | PROVIDER PROGRESS NOTE ---
- HPI Chief Complaint: Hypertension/PIH Current : Current EDU 08/17/20 Gestation 38 Weeks and 6 Days 3 Para 0 Vital Signs Temperature 36.8 C 08/09/20 08:00 Heart Rate 108 H 08/09/20 08:00 Respiratory Rate 17 08/09/20 08:00 Blood Pressure 114/76 08/09/20 08:00 O2 Saturation 100 08/09/20 08:00 Temperature 36.8 C 08/09/20 08:39 Heart Rate 108 H 08/09/20 08:39 Respiratory Rate 17 08/09/20 08:39 Blood Pressure 114/76 08/09/20 08:39 O2 Saturation 100 08/09/20 08:00 - Procedures OB Procedure Performed: NST Diagnosis/Indication for NST: Other NST Procedure: NST Procedure Start Date 08/09/20 Start Time 08:00 Stop Time 08:40 Vibroacoustic Stimulation Used No Patient States Movement Yes Service Date of procedure: 08/09/20 - Plan Plan: Pt evaluated face to face Sapphire is a 30yo @ 39.0wks gestation who presents to [facility] for blood pressure check secondary to elevated BP at her outpatient triage visit. She presented at that time for decreased movement. Her NST was reactive and she did feel increased movement upon arrival. She continues to deny vaginal bleeding or leakage of fluid. She reports +FM today. She denies MULLEN, visual disturbances, RUQ or epigastric pain. Bilateral LE's mild edema which is consistent with what she has been experiencing over the past several weeks. O: BP 114/76; 118/72 NST performed 08/09/2020 NST read 08/09/2020 NST reactive. FHR baseline 135, moderate variability, + accels, no decels Contractions palpate mild every 3-6 minutes with soft resting tone SVE deferred A: 30yo @ 39.0wks gestation Normotensive Elective IOL with pre-induction cervical ripening P: 50mcg BC misoprostol administered for outpatient cervical ripening. Pt continuously monitored x 4 hours after administration Reviewed PIH warning s/sx and when to present. Pt released home with precautions. Return tomorrow morning for elective IOL at 0800 or sooner PRN. Pt verbalized understanding and agrees to above plan. She denies further questions or concerns at this time.
== END 2020-08-09 14:10 | disposition home or self-care (01) ==
LOC: WFO 07:52 → FBP 07:55 → WFO 08:17 → FBP 08:18
PROVIDERS: ADMIT Nurse Practitioner Obstetrics & Gynecology; ATTEND Nurse Practitioner Obstetrics & Gynecology
DX: Z34.83 Encounter for supervision of other normal pregnancy, third trimester (principal)
CPT/HCPCS: 59025; A9270; G0378

== ENCOUNTER 2020-08-10 07:47 | Inpatient (IN) | payer OTHER ==
[2020-08-10] MEDS: SODIUM CHLORIDE FLUSH 0.9% 10 ML SYRINGE IVP SCH ×2 (08:40→18:16)
[2020-08-10] MEDS ORDERED: LIDOCAINE-MPF 1% 30 ML VIAL ID PRN (08:50)
[2020-08-10] MEDS ORDERED: AMPICILLIN 2 GM in SODIUM CHLORIDE 0.9% MINIBAG 100 ML IV ONE (08:50)
[2020-08-10] MEDS ORDERED: ONDANSETRON 4 MG/2 ML VIAL IVP PRN (08:50)
[2020-08-10] MEDS ORDERED: ACETAMINOPHEN 325 MG TABLET PO PRN (08:50)
[2020-08-10] MEDS ORDERED: TRANEXAMIC ACID IN NACL 1,000 MG/100 ML BAG IV PRN (08:50)
[2020-08-10] MEDS ORDERED: miSOPROStoL 200 MCG TABLET BC PRN (08:50)
[2020-08-10] MEDS ORDERED: SODIUM CHLORIDE FLUSH 0.9% 10 ML SYRINGE IVP PRN (08:50)
[2020-08-10] MEDS ORDERED: METOCLOPRAMIDE 10 MG/2 ML VIAL IVP PRN (08:50)
[2020-08-10] MEDS ORDERED: fentaNYL 100 MCG/2 ML VIAL IVP PRN (08:50)
[2020-08-10] MEDS ORDERED: METHYLERGONOVINE 0.2 MG/ML VIAL IM PRN (08:50)
[2020-08-10] MEDS ORDERED: OXYTOCIN/SODIUM CHLORIDE 500 ML IV PRN (08:50)
[2020-08-10] MEDS ORDERED: CARBOPROST TROMETHAMINE 250 MCG/ML AMP IM PRN (08:50)
[2020-08-10] MEDS ORDERED: OXYTOCIN 10 UNIT/ML VIAL IM PRN (08:50)
--- NOTE | 2020-08-10 08:50 | HISTORY & PHYSICAL EXAMINATION ---
Admit History - Visit Reason Visit Reason: Other (IOL) - : 3 Parity: 0 Premature: 0 Ectopic: 0 : 1 Care: positive: Other ([facility]) Risk/History: positive: Other (Abnormal femur length on US) Smoking Status: Never smoker - Mother's Labs Mother's Blood Type: positive: O Mother's RH: positive: Positive GBS: positive: Group B Strep Positive Rubella Status: positive: Immune - Other Maternal History Other Maternal History: -30yo at 39.0wks gestation who presents to Labor and Delivery for pre- induction cervical ripening -Reports movement -Denies ctx/VB/LOF - care with [facility] which has been adequate after transfer from [facility] at 15.4wks - Complications -US finding- shortened femur- no change in plan of care per MFM -HSV positive- prophylaxis at 36 wks- initiated -Initial concern for neurologic event in second trimester (unilateral numbness and weakness)- Cleared by neurology -Dating Criteria -Initial U/S: 01/22/2020 @ 10.3wks/ c/w LMP dating for KATHERINE 08/17/2020 -OB Hx *G1: 2007 SAB *G2: 2013 SAB *G3: Current -Medications * vitamin-daily *Valacyclovir 500mg BID since 36wks *ASA 81mg daily -Allergies *NKDA -Medical History *HSV-2 -Surgical History *Lumbar puncture (2014) *[place] Teeth (2008) -Family History *PGM- Cancer *PGF- Dementia *Father- Diabetes, sleep apnea -Social History *Non contributory - Labs, Immunizations, and Findings Initial U/S: 01/22/2020 @ 10.3wks/ c/w LMP dating for KATHERINE 08/17/2020 O pos/Rubella immune VZV: immune Early 1 hour GTT -93 Genetic testing: Serum integrated screen negative FAS: Reviewed findings. CL 6 cm 3VC, posterior, wnl Growth and JENNIE -JENNIE 20.5, EFW 83%itle. 06/14/2020 Glucola- 1 hr GTT elevated (163) - 3 hour GTT WNL (89, 165, 142, 121) Influenza: 02/25/2020 TDAP 05/19/2020 GBS & GC/CT at 37 weeks- positive IPAP in labor HSV: POSITIVE - acyclovir @ 36wks- started Breast pump Rx provided MOD: Anticipate ; FOB Hong; "wait and see" approach to pain management in labor but feels she would prefer not to have an epidural; It's a GIRL! Gavi gatica contraception: POPs pap: 12/2018 neg; HPV negative (repeat 2023) -SVE : /-3/soft/ant -Vertex by BSUS -EFW by carlee's 8# - Physical Exam: Normocephalic, atraumatic Heart RRR w/o murmur Lungs clear and equal bilaterally Abdomen gravid, soft, nontender Edema- none Psych- wnl -FHTs per flowsheet -Assessment *30 yo at 39.0wks gestation who presents for elective IOL *Dobbs Score 8- appropriate for cervical ripening * Heart Tones- Category I -Plan *Admit to OBS(until active labor, SROM, AROM, epidural, or pitocin) *Cervical ripening with Misoprostol *Monitoring- Continuous *Comfort measures available- position changes, whirlpool tub, fentanyl, and epidural per maternal preference *Diet/Activity- per maternal preference *Anticipate *Due to no COVID swab (send outs) available, will refrain from checking for COVID with rapid test as pt is having no symptoms Meds/Allgy - Allergies Allergies/Adverse Reactions: Allergies Allergy/AdvReac Type Severity Reaction Status Date / Time No Known Drug Allergies Allergy Verified 05/01/20 14:53 Review of Systems - All Other Systems All Other Systems: reports: Reviewed and negative Physical - Monitoring Strip Review: positive: Category I - Presentation Presentation: positive: Vertex - Vaginal Exam Membranes: positive: Membranes intact Dilation (in cm): 2 Effacement (%): 80 Plan for Labor - Plan For Labor I expect patient to be DC'd or transferred within 96 hours.: Yes
[2020-08-10 09:06] LABS: BASOPHILS # (AUTO) 0.1 10^3/uL (0.0-0.1); BASOPHILS % (AUTO) 0.4 %; EOSINOPHILS # (AUTO) 0.3 10^3/uL (0.0-0.7); EOSINOPHILS % (AUTO) 1.9 %; HCT - HEMATOCRIT 37.7 % (37.0-47.0); HGB - HEMOGLOBIN 12.5 g/dL (12.0-16.0); LYMPHOCYTES # (AUTO) 2.2 10^3/uL (1.5-3.5); MEAN CORPUSCULAR HEMOGLOBIN 31.1 pg (27.0-31.0); MEAN CORPUSCULAR HGB CONC 33.2 g/dL (32.0-36.0); MEAN CORPUSCULAR VOLUME 93.8 fL (81.0-99.0); MONOCYTES % (AUTO) 6.4 %; NEUTROPHILS % (AUTO) 73.7 %; PLT - PLATELET COUNT 278 10^3/uL (130-450); RED BLOOD COUNT 4.02 10^6/uL (4.20-5.40); RED CELL DISTRIBUTION WIDTH 15.9 % (12.0-15.0); WHITE BLOOD COUNT 14.9 x10^3/uL (4.8-10.8)
[2020-08-10] MEDS: miSOPROStoL 100 MCG TABLET BC SCH ×4 (09:08→18:16)
[2020-08-10] MEDS: valACYclovir 500 MG TABLET PO SCH ×2 (10:33→20:37)
[2020-08-10] MEDS: LACTATED RINGERS 1,000 ML IV SCH (13:38)
--- NOTE | 2020-08-10 18:20 | PROVIDER PROGRESS NOTE ---
Labor Progress Note - Uterine Monitoring Uterine Monitoring Mode: positive: External toco Contraction Frequency (min/apart): 2-5 Contraction Intensity: positive: Mild Uterine Resting Tone: positive: Soft - Monitoring Monitor Mode: positive: External ultrasound Heart Rate Baseline: 150 Heart Rate Variability: positive: Moderate (6-25 bmp) Accelerations: positive: Present, 15x15 Decelerations: positive: None - Labor Progress Note Labor Progress Note/Additional Text: S: Sapphire is reclining in the chair next to the bed. FOB supportive at bedside. She reports feeling ctx pain as a 3/10, and some of them not at all. Breathing a nd focus are effective for pain management for her at this time. O: S/P miso dose #2, third dose due now A: 30yo at 39.0wks gestation Elective IOL- not yet in active labor Reassuring FHTs Ctx pattern appropriate for miso administration P: Give third dose misoprostol now Continuous monitoring Anticipate
[2020-08-10] MEDS: OXYTOCIN/SODIUM CHLORIDE 500 ML IV SCH (20:20)
[2020-08-11] MEDS: LACTATED RINGERS 1,000 ML IV SCH (00:57)
[2020-08-11] MEDS: AMPICILLIN 1 GM in SODIUM CHLORIDE 0.9% MINIBAG 100 ML IV SCH ×5 (05:02→21:57)
[2020-08-11] MEDS: SODIUM CHLORIDE FLUSH 0.9% 10 ML SYRINGE IVP SCH ×4 (08:59→16:55)
[2020-08-11] MEDS: valACYclovir 500 MG TABLET PO SCH ×2 (09:06→19:57)
[2020-08-11] MEDS: miSOPROStoL 100 MCG TABLET BC SCH ×3 (09:35→17:48)
--- NOTE | 2020-08-11 14:17 | PROVIDER PROGRESS NOTE ---
Labor Progress Note - Uterine Monitoring Uterine Monitoring Mode: positive: External toco Contraction Frequency (min/apart): 3-5 Contraction Intensity: positive: Mild Uterine Resting Tone: positive: Soft - Monitoring Monitor Mode: positive: External ultrasound Heart Rate Baseline: 150 Heart Rate Variability: positive: Moderate (6-25 bmp) Accelerations: positive: Present, 15x15 Decelerations: positive: None Strip Review: positive: Category I - Vaginal Exam Dilation (in cm): 2 Effacement (%): 80 Station: -3 Cervical Position: Anterior - Labor Progress Note Labor Progress Note/Additional Text: S: Spaphire is resting in the chair with FOB supportive at her side. She is feeling contractions much less than last night, and has been able to get a small nap in, but was otherwise unable to sleep last night. She reports the whirlpool tub as "instantly helpful" earlier when struggling with contractions. O: After contraction pattern was outside of protocol for continuing misoprostol, orders were given last night to start pitocin Pitocin started at 2019, up to 9mU/min Hyperstimulation began to occur so pitocin was discontinued at approx 0400 SVE at that time /-3 (unchanged) Pit rest ordered-Contractions continued into the morning Misoprostol restarted, second dose given now Ampicillin >2 doses given A: 30yo at 39.1 weeks- elective IOL Cervical ripening indicated Will consider mcfarland balloon at time of next miso dose Contractions are not indicative of active labor pattern FHT Cat I P: Continuous monitoring Continue misoprostol admin at this time Continue ampicillin admin Anticipate
--- NOTE | 2020-08-11 17:52 | PROVIDER PROGRESS NOTE ---
Labor Progress Note - Uterine Monitoring Uterine Monitoring Mode: positive: External toco Contraction Frequency (min/apart): 3-5 Contraction Intensity: positive: Mild Uterine Resting Tone: positive: Soft - Monitoring Monitor Mode: positive: External ultrasound Heart Rate Baseline: 135 Heart Rate Variability: positive: Moderate (6-25 bmp) Accelerations: positive: Present, 15x15 Decelerations: positive: None Strip Review: positive: Category I - Vaginal Exam Dilation (in cm): 2 Effacement (%): 80 Station: -3 Cervical Position: Anterior - Labor Progress Note Labor Progress Note/Additional Text: S: Sapphire remains comfortable, barely feeling contractions. Just got out of the shower and finished dinner. O: SVE 2/80/-3/soft/ant A: 30yo at 39.1wks gestation No cervical change Not in active labor FHT CAt I P: Suggested mcfarland balloon, however patient declines. Will reassess in 4 hours Give next dose miso now Continuous monitoring Anticipate
--- NOTE | 2020-08-11 18:38 | ANESTHESIA ---
Pre-Anesthesia VS, & Labs - Diagnosis active labor - Procedure labor epidural Vital Signs: Temp Pulse Resp BP Pulse Ox 36.7 C 08/10/20 08:59 Height: 5 ft 1 in Weight (kg): 108.318 kg Body Mass Index: 45.1 BMI Classification: Morbidly Obese - Is Patient ?: Yes - Lab Results Current Lab Results: Laboratory Tests 08/10/20 10:27: Blood Type Recheck O POSITIVE 08/10/20 08:40: Blood Type O POSITIVE, Antibody Screen NEGATIVE 08/10/20 08:40: WBC 14.9 H, RBC 4.02 L, Hgb 12.5, Hct 37.7, MCV 93.8, MCH 31.1 H , MCHC 33.2, RDW 15.9 H, Plt Count 278, MPV 10.0, Neut # (Auto) 11.0 H, Lymph # (Auto) 2.2, [place] # (Auto) 1.0, Eos # (Auto) 0.3, Baso # (Auto) 0.1, Absolute Nucleated RBC 0.00, Nucleated RBC % 0.0 Lab results reviewed: Yes Fish Bones: 08/10/20 08:40 Home Medications and Allergies Active Medications Acetaminophen (Acetaminophen 325 Mg Tablet) 650 mg PO Q6H PRN PRN Reason: Pain or Fever Carboprost Tromethamine (Carboprost Tromethamine 250 Mcg/Ml Amp) 250 mcg IM Q15M PRN PRN Reason: Step 4: Hemorrhage protocol Stop: 08/15/20 08:51 Fentanyl (Fentanyl 100 Mcg/2 Ml Vial) 50 mcg IVP Q1H PRN PRN Reason: PAIN Oxytocin/Sodium Chloride (Pitocin/Sodium Chloride) 500 mls @ 999 mls/hr IV PRN PRN; Protocol PRN Reason: POST- HEMORR PREVENTION Stop: 08/15/20 08:51 Tranexamic Acid (Tranexamic 1,000 Mg/100ml-Nacl) 1,000 mg in 100 mls @ 600 mls/hr IV .ONCE PRN PRN Reason: EBL >1200mL and within 3hr Stop: 08/15/20 08:51 Lactated Ringer's (Lr) 1,000 mls @ 100 mls/hr IV .Q10H HALEY Last Admin: 08/11/20 00:57 Dose: 100 mls/hr Documented by: Oxytocin/Sodium Chloride (Pitocin/Sodium Chloride) 500 mls @ 1 mls/hr IV TITR [facility]; Protocol Last Admin: 08/10/20 20:20 Dose: 1 milliunit/min, 1 mls/hr Documented by: Ampicillin Sodium 1 gm/ Sodium (Chloride) 100 mls @ 200 mls/hr IV Q4H [facility] Last Infusion: 08/11/20 17:25 Dose: Infused Documented by: Lidocaine HCl (Lidocaine-Mpf 1% 30 Ml Vial) 30 ml ID .ONCE PRN PRN Reason: PERINEAL REPAIR Stop: 08/15/20 08:51 Methylergonovine Maleate (Methylergonovine 0.2 Mg/Ml Vial) 0.2 mg IM .ONCE PRN PRN Reason: Step 2: Hemorrhage protocol Stop: 08/15/20 08:51 Metoclopramide HCl (Metoclopramide 10 Mg/2 Ml Vial) 10 mg IVP Q6H PRN PRN Reason: Nausea / Vomiting Misoprostol (Misoprostol 200 Mcg Tablet) 800 mcg BC .ONCE PRN PRN Reason: Step 3: Hemorrhage protocol Stop: 08/15/20 08:51 Misoprostol (Misoprostol 100 Mcg Tablet) 50 mcg BC Q4HR [facility] Last Admin: 08/11/20 17:48 Dose: 50 mcg Documented by: Ondansetron HCl (Ondansetron 4 Mg/2 Ml Vial) 4 mg IVP Q4HR PRN PRN Reason: Nausea / Vomiting Oxytocin (Oxytocin 10 Unit/Ml Vial) 10 unit IM .ONCE PRN PRN Reason: Step one: If no IV access Stop: 08/15/20 08:51 Sodium Chloride (Sodium Chloride Flush 0.9% 10 Ml Syringe) 10 ml IVP 0100,0900,1700 [facility] Last Admin: 08/11/20 16:55 Dose: 10 ml Documented by: Sodium Chloride (Sodium Chloride Flush 0.9% 10 Ml Syringe) 10 ml IVP PRN PRN PRN Reason: NEEDED PER PROVIDER ORDERS Valacyclovir HCl (Valacyclovir 500 Mg Tablet) 500 mg PO BID [facility] Last Admin: 08/11/20 09:06 Dose: 500 mg Documented by: Allergies/Adverse Reactions: Allergies Allergy/AdvReac Type Severity Reaction Status Date / Time No Known Drug Allergies Allergy Verified 01/15/21 14:53 Anes History & Medical History - Anesthetic History Anesthesia Complications: reports: Other-see comment (Pt had Spinal headache s/p LP) Family history of Anesthesia Complications: Denies Family history of Malignant Hyperthermia: Denies - Medical History Cardiovascular: reports: None Pulmonary: reports: None Gastrointestinal: reports: None Musculoskeletal: reports: Scoliosis (slight) Smoking Status: Never smoker - Obstetrical History : 3 Parity: 0 Events: reports: Other (Abnormal femur length on US) Exam General: Alert, Oriented x3, Cooperative, No acute distress Plan Anesthesia Type: Epidural Consent for Procedure(s) Verified and Reviewed: Yes Code Status: Attempt Resuscitation ASA classification: 2-Mild systemic disease Is this case an emergency?: No
[2020-08-11] MEDS ORDERED: ZOLPIDEM 5 MG TABLET PO PRN (22:52)
[2020-08-11] MEDS ORDERED: diphenhydrAMINE 25 MG CAPSULE PO PRN (22:52)
--- NOTE | 2020-08-11 22:52 | PROVIDER PROGRESS NOTE ---
Labor Progress Note - Uterine Monitoring Uterine Monitoring Mode: positive: External toco Contraction Frequency (min/apart): 1-4 Contraction Intensity: positive: Mild to moderate Uterine Resting Tone: positive: Soft - Monitoring Monitor Mode: positive: External ultrasound Heart Rate Baseline: 140 Heart Rate Variability: positive: Moderate (6-25 bmp) Accelerations: positive: Present, 15x15 Decelerations: positive: None Strip Review: positive: Category I - Vaginal Exam Dilation (in cm): 2 Effacement (%): 80 Station: -3 Cervical Position: Anterior - Labor Progress Note Labor Progress Note/Additional Text: S: Tahmina reports some increased sensation of contractions, although position changes and breathing are still completely effective for pain management. O: SVE 2/80/-3/soft/ant/intact Cervical balloon placed: Uterine 60cc/Vaginal 40cc, traction encouraged Misoprostol last given at approx 1800 Ampicillin infusing A: 30yo at 39.1wks gestation- elective IOL No cervical change- head not well engaged- consider position changes to improve positioning Uterine activity- not adequate for cervical change, too frequent for further misoprostol ripening FHT- Cat I P: May do intermittent monitoring while balloon in place, per protocol Balloon for 12 hours or until expelled Anticipate
[2020-08-12] MEDS ORDERED: LACTATED RINGERS 1,000 ML IV ONE (00:04)
[2020-08-12] MEDS: AMPICILLIN 1 GM in SODIUM CHLORIDE 0.9% MINIBAG 100 ML IV SCH ×5 (02:45→17:16)
[2020-08-12] MEDS: LACTATED RINGERS 1,000 ML IV SCH ×3 (05:11→18:33)
[2020-08-12] MEDS ORDERED: BUPIVACAINE 0.25% PF 10 ML VIAL ONE (05:20)
[2020-08-12] MEDS ORDERED: fentaNYL 100 MCG/2 ML VIAL ONE ×2 (05:20→22:50)
[2020-08-12] MEDS ORDERED: ROPIVACAINE 0.2% 200 MG/100 ML BAG EP ONE (05:20)
[2020-08-12] MEDS ORDERED: NALOXONE 0.4 MG/ML VIAL IVP PRN ×2 (05:54→23:52)
[2020-08-12] MEDS ORDERED: NALBUPHINE 10 MG/ML AMP IVP PRN (05:54)
[2020-08-12] MEDS ORDERED: ONDANSETRON 4 MG/2 ML VIAL IVP PRN ×2 (05:54→23:52)
[2020-08-12] MEDS ORDERED: METOCLOPRAMIDE 10 MG/2 ML VIAL IVP PRN ×2 (05:54→23:52)
[2020-08-12] MEDS ORDERED: diphenhydrAMINE INJ 50 MG/ML VIAL IVP PRN (05:54)
[2020-08-12] MEDS ORDERED: ePHEDrine 50 MG/ML VIAL IVP PRN ×2 (05:54→23:52)
[2020-08-12] MEDS ORDERED: ROPIVACAINE 0.2% 200 MG/100 ML BAG EP PRN (05:54)
[2020-08-12] MEDS: OXYTOCIN/SODIUM CHLORIDE 500 ML IV SCH (07:07)
[2020-08-12] MEDS: valACYclovir 500 MG TABLET PO SCH (08:31)
--- NOTE | 2020-08-12 08:42 | PROVIDER PROGRESS NOTE ---
Labor Progress Note - Uterine Monitoring Uterine Monitoring Mode: positive: External toco Contraction Frequency (min/apart): 3-6 Contraction Intensity: positive: Mild to moderate Uterine Resting Tone: positive: Soft - Monitoring Monitor Mode: positive: External ultrasound Heart Rate Baseline: 130 Heart Rate Variability: positive: Moderate (6-25 bmp) (periods of minimal with accelerations) Accelerations: positive: Present, 15x15 Decelerations: positive: None Strip Review: positive: Category I - Labor Progress Note Labor Progress Note/Additional Text: S: Sapphire is comfortable in bed with her epidural, able to sleep soundly. FOB is sleeping on couch at beside, supportive. O: SVe at 0608: 5/80/-3 Balloon out at 0230 with SROM for copious amount of clear fluid. Pitocin at 4mU/min Epidural in place A: 30yo at 39.2wks gestation Active Labor FHT- Cat I Epidural effective for pain management P: Continuous monitoring Pitocin augmentation Anticipate
--- NOTE | 2020-08-12 15:11 | CONSULTATION NOTE ---
Consultation Report: Called for air in lione and hot spot after epidural bolus. Pt in bed lying with R side down, new complaints of right sided pain with contractions. Lidocaine 2% with 5cc NS bolused slowly. Air in line resolved and additional 5cc bolus of 0.2%Ropi given via pump, set to bolus full 10cc in 30 mins. Will reassess for effectiveness.
[2020-08-12] MEDS ORDERED: LIDOCAINE-PF 2% 10 ML AMP SUBQ ONE ×2 (15:59→23:08)
[2020-08-12] MEDS ORDERED: OXYTOCIN 10 UNIT/ML VIAL ONE ×2 (20:56→23:16)
--- NOTE | 2020-08-12 20:59 | PROVIDER PROGRESS NOTE ---
Labor Progress Note - Uterine Monitoring Uterine Monitoring Mode: positive: IUPC Contraction Frequency (min/apart): 2-4 Contraction Intensity: positive: Mild to moderate Uterine Resting Tone: positive: Soft - Monitoring Monitor Mode: positive: External ultrasound Heart Rate Baseline: 140 Heart Rate Variability: positive: Minimal (0-5 bpm), Moderate (6-25 bmp) Accelerations: positive: Present, 15x15 Decelerations: positive: None Strip Review: positive: Category I - Vaginal Exam Dilation (in cm): 9 Effacement (%): 90 Station: 0 Cervical Position: Midposition - Labor Progress Note Labor Progress Note/Additional Text: S: [place] is struggling with pain management. Several epidural boluses have been used throughout the day to help manage her discomfort. FOB and her step-mother are present at bedside now and very supportive. She feels she is too tired to carry on, and with the lack of cervical change, is requesting a delivery. O: SVE /0 since 1520 Pitocin at 10mU/min MVUs over last hour with IUPC, in the 160-180 range AUTO WINDER to bedside for epidural management A: 30yo at 39.2wks gestation No cervical change for >5hrs with adequate MVUs for at least the last hour Failure to progress P: After thorough discussion with patient and family, including plan of care with continued efforts for vaginal delivery, delivery with surgical and lifelong childbearing implications, and physiology of failure to progress, patient elects to have a delivery. MD notified OR team notified Will proceed with surgical delivery.
[2020-08-12] MEDS ORDERED: ePHEDrine 50 MG/ML VIAL IVP ONE (21:06)
[2020-08-12] MEDS ORDERED: SODIUM CHLORIDE 0.9% 10 ML VIAL IVP ONE (21:06)
[2020-08-12] MEDS ORDERED: LIDOCAINE-MPF 2% 5 ML VIAL ONE ×3 (21:33→23:14)
--- NOTE | 2020-08-12 21:34 | CONSULTATION NOTE ---
Referring Provider Name of Referring Provider:: Raina López CNM Consult Date: 08/12/20 History of Present Illness - History of Present Illness HPI Comment/Other: 30yo at 39.2 wks gestation who presented to Labor and Delivery for induction of labor. She had undergone 6 doses of misoprostol, pitocin, Arenas balloon, and pitocin after period of rest. Max dose of pitocin was 14 mU/min. SVE remained a 9/90/0 over 4 hours. IUPC was inserted and she was having adequate contractions. With extended failure to progress, recommendation was to proceed with primary . Patient is in agreement and wishes to proceed. GBS positive and has had multiple doses of ampicillin. 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 course was complicated by the following: - Complications -US finding- shortened femur- no change in plan of care per MFM -HSV positive- prophylaxis at 36 wks- initiated -Initial concern for neurologic event in second trimester (unilateral numbness and weakness)- Cleared by neurology PNC: -Dating Criteria -Initial U/S: 01/22/2020 @ 10.3wks/ c/w LMP dating for KATHERINE 08/17/2020 -OB Hx *G1: 2007 SAB *G2: 2013 SAB *G3: Current -Medications * vitamin-daily *Valacyclovir 500mg BID since 36wks *ASA 81mg daily -Allergies *NKDA -Medical History *HSV-2 -Surgical History *Lumbar puncture (2014) *[place] Teeth (2008) -Family History *PGM- Cancer *PGF- Dementia *Father- Diabetes, sleep apnea -Social History *Non contributory - Labs, Immunizations, and Findings Initial U/S: 01/22/2020 @ 10.3wks/ c/w LMP dating for KATHERINE 08/17/2020 O pos/Rubella immune VZV: immune Early 1 hour GTT -93 Genetic testing: Serum integrated screen negative FAS: Reviewed findings. CL 6 cm 3VC, posterior, wnl Growth and JENNIE -JENNIE 20.5, EFW 83%itle. 06/14/2020 Glucola- 1 hr GTT elevated (163) - 3 hour GTT WNL (89, 165, 142, 121) Influenza: 02/25/2020 TDAP 05/19/2020 GBS & GC/CT at 37 weeks- positive IPAP in labor HSV: POSITIVE - acyclovir @ 36wks- started Breast pump Rx provided MOD: Anticipate ; FOB Hong; "wait and see" approach to pain management in labor but feels she would prefer not to have an epidural; It's a GIRL! Gavi gatica contraception: POPs pap: 12/2018 neg; HPV negative (repeat 2023) History - Past Medical History Cardiovascular: reports: None Respiratory: reports: None GI: reports: None Musculoskeletal: reports: Scoliosis (slight) Meds/Allgy - Home Medications Home Medications: Ambulatory Orders Medication Instructions Recorded Confirmed Aspirin [Aspirin EC] 81 mg PO DAILY 08/11/20 08/11/20 Pnv No.121/Iron/Folic Acid 1 each PO DAILY 08/11/20 08/11/20 [ Multivitamin Tablet] Valacyclovir HCl [Valtrex] 500 mg PO BID 08/11/20 08/11/20 - Allergies Allergies/Adverse Reactions: Allergies Allergy/AdvReac Type Severity Reaction Status Date / Time No Known Drug Allergies Allergy Verified 08/11/20 19:35 Review of Systems - Other Findings Other Findings: per HPI, otherwise remaining systems are negative. Exam - Vital Signs Reviewed Vital Signs: Yes Vital Signs: Reviewed in Centricity - Physical Exam General Appearance: positive: No acute distress Respiratory: positive: No respiratory distress Cardiovascular: positive: Other (RR) Abdomen: positive: Other (gravid, S&NT) Skin: positive: Color nml Neurologic/Psychiatric: positive: Oriented x3 Conclusion/Plan - Diagnosis Diagnosis: Failure to progress - Plan Plan: Proceed with primary for failure to progress R/B/A reviewed and written informed consent was obtained. Cefazolin 2g IV OCTOR Abdomen was pre-wiped with Therawork Will have vaginal prep in OR Uterotonics in the room - Lab Results Lab results reviewed: Yes Fish Bones: 08/10/20 08:40
[2020-08-12] MEDS ORDERED: ceFAZolin 1 GM VIAL ONE (21:38)
[2020-08-12] MEDS ORDERED: ONDANSETRON 4 MG/2 ML VIAL ONE (21:43)
[2020-08-12] MEDS ORDERED: KETOROLAC 30 MG/ML VIAL ONE (22:25)
[2020-08-12] MEDS ORDERED: ACETAMINOPHEN 1,000 MG/100 ML 100 ML IV ONE (22:25)
[2020-08-12] MEDS ORDERED: BUPIVACAINE 0.5%-EPI 1:200000 PF 30 ML VIAL ONE (23:07)
[2020-08-12] MEDS ORDERED: ROPIVACAINE 0.5% PF 20 ML AMPULE ONE ×2 (23:08→23:25)
[2020-08-12] MEDS ORDERED: LACTATED RINGERS 1,000 ML IV SCH (23:45)
[2020-08-12] MEDS ORDERED: BUPIVACAINE 0.5%-EPI 1:200000 PF 30 ML VIAL SUBQ ONE (23:47)
[2020-08-12] MEDS ORDERED: HYDROmorphone 0.5 MG/0.5 ML SYRINGE IVP PRN (23:52)
[2020-08-12] MEDS ORDERED: fentaNYL 100 MCG/2 ML VIAL IVP PRN (23:52)
[2020-08-12] MEDS ORDERED: ATROPINE ABBOJECT 1 MG/10 ML SYRINGE IVP PRN (23:52)
[2020-08-12] MEDS ORDERED: MORPHINE 2 MG/ML CARPUJECT IVP PRN (23:52)
[2020-08-13] MEDS ORDERED: ONDANSETRON ODT 4 MG TABLET TL PRN (00:14)
[2020-08-13] MEDS ORDERED: OXYTOCIN/SODIUM CHLORIDE 500 ML IV PRN (00:14)
[2020-08-13] MEDS ORDERED: SODIUM CHLORIDE FLUSH 0.9% 10 ML SYRINGE IVP PRN (00:14)
--- NOTE | 2020-08-13 00:19 | OPERATIVE REPORT ---
Operative Report - General Admit Date: 08/10/20 Procedure Date: 08/12/20 Planned Procedure: Primary low transverse Pre-Op Diagnosis: IUP at 39+2 wga, Failure to progress, prolonged induction Procedure Performed: Primary low transverse Excision of bilateral paratubal cysts Post Op Diagnosis: Same and delivery of term gestation - Procedure Note Primary Surgeon: Jenise Vann MD Secondary Surgeon: JARED Toth Anesthesia Provider: Eb Moss CRNA Anesthesia Technique: Epidural, Local Pathology: Placenta and paratubal cysts for routine discard IV Fluids (mL): 1,300 Estimated Blood Loss (mL): 1,200 Urine Output (mL): 200 Indications: 30yo at 39.2 wks gestation who presented to Labor and Delivery for induction of labor. She had undergone 6 doses of misoprostol, pitocin, Arenas balloon, and second round pitocin after period of rest. Max dose of pitocin was 14 mU/min. SVE remained a 9/90/0 over 4 hours. IUPC was inserted and she was having adequate contractions. Membranes ruptured approximately 18 hours prior to delivery. With extended failure to progress, recommendation was to proceed with primary . Patient is in agreement and wishes to proceed. Findings: [place] in vertex presentation, wedged deeply in pelvis. Apgars were 8/9 and weight was 8lb 2 oz. Edematous bladder. Bilateral paratubal cysts about 2-3 cm in diameter. Normal appearing uterus, fallopian tubes, and ovaries. Complications: Extension on left lateral aspect of incision. Otherwise, uncomplicated procedure. - Other Other Information/Narrative: Risks benefits and alternatives of the procedure were discussed. Written informed consent was obtained. Patient was taken to the operating room where spinal anesthesia was placed and found to be adequate. She was prepped and draped in the usual sterile fashion in the dorsal supine position with a leftward tilt. Arenas catheter was in place. SCDs were in place and activated. Cefazolin 2 g IV was given as a preoperative antibiotic. Preoperative timeout was performed. A Pfannenstiel incision was made in the skin with a scalpel and carried through the underlying layer of fascia in a combination of sharp and blunt dissection. The fascia was incised in the midline, and the incision was extended laterally with the Street scissors. The superior aspect of the fascial incision was grasped with the Kayy clamps, elevated, and the underlying rectus muscles were dissected off bluntly and sharply using the Street scissors. Attention was then turned to the inferior aspect of the incision which in a similar fashion was grasped, tented up with Kayy clamps, and the underlying rectus muscles dissected off bluntly and sharply using Street scissors. The rectus muscles were then in the midline. The peritoneum was identified, tented up, and entered bluntly. The peritoneal incision was extended superiorly and inferiorly with good visualization of the bladder. The bladder was edematous. The bladder that blade was then inserted. A bladder flap was not created. Care was taken to identify the accessible highest point of the lower uterine segment of the uterus , and incised in a transverse fashion with a scalpel. The uterus was entered bluntly. The uterine incision was extended in a craniocaudal fashion by manual stretch. The bladder blade was removed. The was wedged deep in the pelvis and delivery was challenging. Infant delivered from from vertex position with vacuum assistance using the Kiwi rigid cup vacuum. Baby was wrapped in a warm sterile towel. Delayed cord clamping was performed only briefly. The cord was clamped x2 and cut. The was handed off to the waiting pediatricians. Cord gases were collected. The placenta was removed with manual expression. The uterus was exteriorized and cleared of all clots and debris via manual swipe using Ray-Malcolm x2. The uterine incision was then repaired in a running locked fashion using 0 Vicryl suture. There was an extension along the left lateral edge of the incision, which was also repaired in a running locked fashion, taking care to pull the vessels away from the area of repair. The incision was reinforced with a running imbricating layer again using 0-Vicryl suture. Excellent hemostasis was obtained. Both fallopian tubes were noted to have paratubal cysts about 2-3 cm in diameter at the fimbriated end of the tube. Patient provided consent for removal and both were excised with cautery. Good hemostasis was noted. The uterus was returned to the abdomen. The gutters were cleared of all clots and debris. The pelvis was irrigated with warm normal saline. The uterine defect was well visualized in normal anatomic position it was noted again to be hemostatic. The peritoneum was then reapproximated with 2-0 Vicryl in a running fashion. The rectus muscles were then reapproximated using interrupted [id number] sutures using 2-0 Chromic. Good hemostasis was noted. A total of 20 cc of 0.5% bupivicaine with epinephrine was injected into the fascial layer and subcutaneous tissue to assist with pain coverage. The fascia was then closed using 0 Vicryl in a running fashion starting from the left lateral edge to the midline. A second suture was used to close the fascia in a running fashion starting from the right lateral edge and meeting in the midline, agian using 0-Vicryl. The subcutaneous tissue was then irrigated and closed using 2-0 chromic in a running subcutaneous suture. Skin was closed in a running subcuticular suture using 4-0 Monocryl. Steri-Strips were applied to reinforce the incision and dressing was applied. Procedure was well-tolerated and without complication. Sponge lap and needle counts were correct x2. Patient was taken to recovery room in stable condition. Patience López assisted with retraction and delivery of the .
[2020-08-13] MEDS ORDERED: SODIUM CHLORIDE FLUSH 0.9% 10 ML SYRINGE IVP SCH (01:00)
[2020-08-13] MEDS ORDERED: LACTATED RINGERS 1,000 ML IV SCH (01:00)
[2020-08-13] MEDS: oxyCODONE 5 MG TABLET PO PRN ×5 (02:00→22:19)
[2020-08-13] MEDS: ACETAMINOPHEN 500 MG TABLET PO SCH ×3 (02:01→18:18)
[2020-08-13] MEDS: LACTATED RINGERS 1,000 ML IV SCH ×3 (04:40→16:49)
[2020-08-13] MEDS: KETOROLAC 30 MG/ML VIAL IVP SCH ×4 (04:43→22:34)
[2020-08-13 05:43] LABS: BASOPHILS % (AUTO) 0.4 %; EOSINOPHILS % (AUTO) 0.2 %; HCT - HEMATOCRIT 27.4 % (37.0-47.0); HGB - HEMOGLOBIN 8.7 g/dL (12.0-16.0); LYMPHOCYTES % (AUTO) 8.5 %; MEAN CORPUSCULAR HEMOGLOBIN 30.2 pg (27.0-31.0); MEAN CORPUSCULAR HGB CONC 31.8 g/dL (32.0-36.0); MEAN CORPUSCULAR VOLUME 95.1 fL (81.0-99.0); MEAN PLATELET VOLUME 9.9 fL (7.9-10.8); MONOCYTES % (AUTO) 5.5 %; NEUTROPHILS % (AUTO) 84.3 %; PLT - PLATELET COUNT 204 10^3/uL (130-450); RED BLOOD COUNT 2.88 10^6/uL (4.20-5.40); RED CELL DISTRIBUTION WIDTH 16.3 % (12.0-15.0); WHITE BLOOD COUNT 20.2 x10^3/uL (4.8-10.8)
[2020-08-13 05:49] LABS: ABNORMAL LYMPHS % (MANUAL) 0 %
[2020-08-13 06:19] LABS: BAND NEUTROPHILS % (MANUAL) 18 %; DIFFERENTIAL COMMENT MANUAL DIFFERENTIAL; LYMPHOCYTES # (MANUAL) 2.2 10^3/uL (1.5-3.5); LYMPHOCYTES % (MANUAL) 11 %; MONOCYTES # (MANUAL) 0.4 10^3/uL (0.0-1.0); NEUTROPHILS # (MANUAL) 17.6 10^3/uL (1.5-6.6); PLATELET ESTIMATE, MANUAL NORMAL (130-450,000) (NORMAL); RBC MORPHOLOGY (MULTIPLE) NORMAL APPEARANCE (NORMAL)
[2020-08-13] MEDS: DOCUSATE SODIUM 100 MG CAPSULE PO SCH ×2 (08:26→21:07)
[2020-08-13] MEDS: valACYclovir 500 MG TABLET PO SCH (08:26)
[2020-08-13] MEDS ORDERED: SERTRALINE 50 MG TABLET PO SCH (09:00)
[2020-08-13 16:06] LABS: CALCIUM 7.9 mg/dL (8.5-10.3); CREATININE 1.5 mg/dL (0.4-1.0); POTASSIUM 3.7 mmol/L (3.5-5.0)
--- NOTE | 2020-08-13 18:40 | PROVIDER PROGRESS NOTE ---
Subjective - Prog Note Date Prog Note Date: 08/13/20 Prog Note Time: 13:00 - Subjective Subjective: Patient reports pain is relatively well managed with achiness at the edges of the incision. Has been out of bed but has not ambulated extensively. Arenas re abiel in place as bladder was thcined and edematous at time of procedure. Urine output is about 80-100cc/hr. Urine has been dark earlier in the day. Minimal lochia. BF going well. Tolerating po. Objective - Vital Signs/Intake & Output Vital Signs: Vital Signs x48h Temp Pulse Resp BP Pulse Ox 08/13/20 17:00 97.9 F 106 H 17 110/64 96 08/13/20 13:29 98.2 F 106 H 18 109/59 L 98 Intake & Output: Intake & Output 08/10/20 08/11/20 08/12/20 08/13/20 23:59 23:59 23:59 23:59 Intake Total 500 9588.902 2914.033 1215.000 Output Total 660 1605 Balance 500 2711.934 1972.033 -390.000 - Objective General Appearance: positive: No acute distress Respiratory: positive: No respiratory distress, Breath sounds nml Cardiovascular: positive: Regular rate & rhythm, Other (mild tachycardia, reg rate) Abdomen: positive: Non-tender (Appropriately tender. Fundus firm at umbilicus. Non-distended Incision CDI) Extremities: positive: Pedal edema (Marked BLE edema, symmetric. No calf tenderness) Neurologic/Psychiatric: positive: Oriented x3 - Lab Results Fish Bones: 08/13/20 05:30 08/13/20 15:51 Other Labs: Lab Results x24hrs 08/13/20 08/13/20 08/10/20 Range/Units 15:51 05:30 08:40 WBC 20.2 H (4.8-10.8) x10^3/uL RBC 2.88 L (4.20-5.40) 10^6/uL Hgb 8.7 L (12.0-16.0) g/dL Hct 27.4 L (37.0-47.0) % MCV 95.1 (81.0-99.0) fL MCH 30.2 (27.0-31.0) pg MCHC 31.8 L (32.0-36.0) g/dL RDW 16.3 H (12.0-15.0) % Plt Count 204 (130-450) 10^3/uL MPV 9.9 (7.9-10.8) fL Neut # (Auto) Not Reportable Lymph # (Auto) Not Reportable [place] # (Auto) Not Reportable Eos # (Auto) Not Reportable Baso # (Auto) Not Reportable Absolute Nucleated RBC Not Reportable Total Counted 100 Band Neuts % (Manual) 18 H (0 - 10) % Abnorm Lymph % (Manual) 0 % Nucleated RBC % Not Reportable Neutrophils # (Manual) 17.6 H (1.5-6.6) 10^3/uL Lymphocytes # (Manual) 2.2 (1.5-3.5) 10^3/uL Monocytes # (Manual) 0.4 (0.0-1.0) 10^3/uL Eosinophils # (Manual) 0.0 (0-0.7) 10^3/uL Basophils # (Manual) 0.0 (0-0.1) 10^3/uL Differential Comment MANUAL DIFFERENTIAL Platelet Estimate NORMAL (130-450,000) (NORMAL) RBC Morph Micro Appear NORMAL APPEARANCE (NORMAL) Sodium 139 (135-145) mmol/L Potassium 3.7 (3.5-5.0) mmol/L Chloride 108 (101-111) mmol/L Carbon Dioxide 23 (21-32) mmol/L Anion Gap 8.0 (6-13) BUN 20 (6-20) mg/dL Creatinine 1.5 H (0.4-1.0) mg/dL Estimated GFR (MDRD) 40 L (>89) Glucose 106 H (70-100) mg/dL Calcium 7.9 L (8.5-10.3) mg/dL Blood Type O POSITIVE Antibody Screen NEGATIVE Crossmatch IS Only See Detail Assessment/Plan - Problem List (1) delivery delivered Impression: POD#1: Slow receovery process Borderline urine output with dark urine Giving fluid bolus and sending BMP Encourage ambulation Maintain Arenas overnight Cont inpatient care
[2020-08-13 18:41] LABS: CREATININE,URINE 56.1 mg/dL
[2020-08-13 18:47] LABS: CALCIUM 7.7 mg/dL (8.5-10.3); CREATININE 1.3 mg/dL (0.4-1.0); POTASSIUM 3.7 mmol/L (3.5-5.0)
[2020-08-13] MEDS: SIMETHICONE CHEW 80 MG TABLET PO PRN (21:07)
[2020-08-13 21:42] LABS: BASOPHILS # (AUTO) 0.1 10^3/uL (0.0-0.1); BASOPHILS % (AUTO) 0.5 %; EOSINOPHILS # (AUTO) 0.4 10^3/uL (0.0-0.7); HGB - HEMOGLOBIN 8.3 g/dL (12.0-16.0); LYMPHOCYTES # (AUTO) 2.3 10^3/uL (1.5-3.5); LYMPHOCYTES % (AUTO) 11.6 %; MEAN CORPUSCULAR HEMOGLOBIN 30.3 pg (27.0-31.0); MEAN CORPUSCULAR HGB CONC 31.9 g/dL (32.0-36.0); MEAN CORPUSCULAR VOLUME 94.9 fL (81.0-99.0); MEAN PLATELET VOLUME 9.6 fL (7.9-10.8); MONOCYTES % (AUTO) 5.1 %; NEUTROPHILS # (AUTO) 15.4 10^3/uL (1.5-6.6); NEUTROPHILS % (AUTO) 78.7 %; PLT - PLATELET COUNT 212 10^3/uL (130-450); RED BLOOD COUNT 2.74 10^6/uL (4.20-5.40); RED CELL DISTRIBUTION WIDTH 16.7 % (12.0-15.0); WHITE BLOOD COUNT 19.5 x10^3/uL (4.8-10.8)
[2020-08-14] MEDS: ACETAMINOPHEN 500 MG TABLET PO SCH ×3 (02:17→18:27)
[2020-08-14] MEDS: oxyCODONE 5 MG TABLET PO PRN ×6 (02:18→22:23)
[2020-08-14] MEDS: IBUPROFEN 600 MG TABLET PO SCH ×3 (04:53→18:27)
[2020-08-14 05:50] LABS: BASOPHILS # (AUTO) 0.1 10^3/uL (0.0-0.1); BASOPHILS % (AUTO) 0.5 %; EOSINOPHILS # (AUTO) 0.3 10^3/uL (0.0-0.7); EOSINOPHILS % (AUTO) 1.7 %; HCT - HEMATOCRIT 24.9 % (37.0-47.0); LYMPHOCYTES # (AUTO) 2.1 10^3/uL (1.5-3.5); LYMPHOCYTES % (AUTO) 11.6 %; MEAN CORPUSCULAR HEMOGLOBIN 30.7 pg (27.0-31.0); MEAN CORPUSCULAR HGB CONC 32.1 g/dL (32.0-36.0); MEAN CORPUSCULAR VOLUME 95.4 fL (81.0-99.0); MEAN PLATELET VOLUME 9.6 fL (7.9-10.8); MONOCYTES # (AUTO) 0.9 10^3/uL (0.0-1.0); MONOCYTES % (AUTO) 4.9 %; NEUTROPHILS # (AUTO) 14.3 10^3/uL (1.5-6.6); NEUTROPHILS % (AUTO) 78.9 %; PLT - PLATELET COUNT 210 10^3/uL (130-450); RED BLOOD COUNT 2.61 10^6/uL (4.20-5.40); RED CELL DISTRIBUTION WIDTH 16.6 % (12.0-15.0); WHITE BLOOD COUNT 18.1 x10^3/uL (4.8-10.8)
[2020-08-14 06:07] LABS: ALBUMIN/GLOBULIN RATIO 0.6 (1.0-2.2); BILIRUBIN,TOTAL 0.5 mg/dL (0.2-1.0); CREATININE 0.9 mg/dL (0.4-1.0); POTASSIUM 3.8 mmol/L (3.5-5.0); TOTAL PROTEIN 5.1 g/dL (6.7-8.2)
[2020-08-14] MEDS: DOCUSATE SODIUM 100 MG CAPSULE PO SCH ×2 (08:03→22:23)
[2020-08-14] MEDS: SIMETHICONE CHEW 80 MG TABLET PO PRN ×3 (08:03→16:46)
--- NOTE | 2020-08-14 11:15 | PROVIDER PROGRESS NOTE ---
Subjective - Prog Note Date Prog Note Date: 08/14/20 Prog Note Time: 11:11 - Subjective Subjective: Slow to ambulate. Abdominal motion is uncomfortable and affecting desire to move. Has been up and out of bed. Arenas remains in place due to edema with blad pb at time of surgery. UOP now appropriate and light krista. Creatinine improving on am labs. Pain rated 2/3; acceptable to patient. Tolerating po. Objective - Vital Signs/Intake & Output Reviewed Vital Signs: Yes Vital Signs: see Centricity Intake & Output: Intake & Output 08/11/20 08/12/20 08/13/20 08/14/20 23:59 23:59 23:59 23:59 Intake Total 5053.653 4732.033 2015.000 600 Output Total 660 2115 800 Balance 3855.940 4406.033 -100.000 -200 - Objective General Appearance: positive: No acute distress Respiratory: positive: No respiratory distress Cardiovascular: positive: Other (Reg rate at present) Abdomen: positive: Other (Non-tender. Non-distended. Fundus below umbi Incision: Dressing CDI) Skin: positive: Color nml Extremities: positive: Pedal edema (BLE pitting edema, +2, NT) Neurologic/Psychiatric: positive: Oriented x3 - Lab Results Fish Bones: 08/14/20 12:10 08/14/20 11:30 Other Labs: Lab Results x24hrs 08/14/20 08/14/20 08/13/20 Range/Units 05:30 05:30 21:36 WBC 18.1 H 19.5 H (4.8-10.8) x10^3/uL RBC 2.61 L 2.74 L (4.20-5.40) 10^6/uL Hgb 8.0 L 8.3 L (12.0-16.0) g/dL Hct 24.9 L 26.0 L (37.0-47.0) % MCV 95.4 94.9 (81.0-99.0) fL MCH 30.7 30.3 (27.0-31.0) pg MCHC 32.1 31.9 L (32.0-36.0) g/dL RDW 16.6 H 16.7 H (12.0-15.0) % Plt Count 210 212 (130-450) 10^3/uL MPV 9.6 9.6 (7.9-10.8) fL Neut # (Auto) 14.3 H 15.4 H (1.5-6.6) 10^3/uL Lymph # (Auto) 2.1 2.3 (1.5-3.5) 10^3/uL [place] # (Auto) 0.9 1.0 (0.0-1.0) 10^3/uL Eos # (Auto) 0.3 0.4 (0.0-0.7) 10^3/uL Baso # (Auto) 0.1 0.1 (0.0-0.1) 10^3/uL Absolute Nucleated RBC 0.00 0.00 x10^3/uL Nucleated RBC % 0.0 0.0 /100WBC Sodium 138 (135-145) mmol/L Potassium 3.8 (3.5-5.0) mmol/L Chloride 106 (101-111) mmol/L Carbon Dioxide 23 (21-32) mmol/L Anion Gap 9.0 (6-13) BUN 14 (6-20) mg/dL Creatinine 0.9 (0.4-1.0) mg/dL Estimated GFR (MDRD) 73 L (>89) Glucose 82 (70-100) mg/dL Calcium 8.0 L (8.5-10.3) mg/dL Total Bilirubin 0.5 (0.2-1.0) mg/dL AST 22 (10-42) IU/L ALT 12 (10-60) IU/L Alkaline Phosphatase 79 (42-121) IU/L Total Protein 5.1 L (6.7-8.2) g/dL Albumin 2.0 L (3.2-5.5) g/dL Globulin 3.1 (2.1-4.2) g/dL Albumin/Globulin Ratio 0.6 L (1.0-2.2) Urine Creatinine mg/dL Urine Sodium mmol/L Crossmatch IS Only 08/13/20 08/13/20 08/13/20 Range/Units 18:32 18:20 15:51 WBC (4.8-10.8) x10^3/uL RBC (4.20-5.40) 10^6/uL Hgb (12.0-16.0) g/dL Hct (37.0-47.0) % MCV (81.0-99.0) fL MCH (27.0-31.0) pg MCHC (32.0-36.0) g/dL RDW (12.0-15.0) % Plt Count (130-450) 10^3/uL MPV (7.9-10.8) fL Neut # (Auto) (1.5-6.6) 10^3/uL Lymph # (Auto) (1.5-3.5) 10^3/uL [place] # (Auto) (0.0-1.0) 10^3/uL Eos # (Auto) (0.0-0.7) 10^3/uL Baso # (Auto) (0.0-0.1) 10^3/uL Absolute Nucleated RBC x10^3/uL Nucleated RBC % /100WBC Sodium 138 139 (135-145) mmol/L Potassium 3.7 3.7 (3.5-5.0) mmol/L Chloride 108 108 (101-111) mmol/L Carbon Dioxide 22 23 (21-32) mmol/L Anion Gap 8.0 8.0 (6-13) BUN 18 20 (6-20) mg/dL Creatinine 1.3 H 1.5 H (0.4-1.0) mg/dL Estimated GFR (MDRD) 47 L 40 L (>89) Glucose 125 H 106 H (70-100) mg/dL Calcium 7.7 L 7.9 L (8.5-10.3) mg/dL Total Bilirubin (0.2-1.0) mg/dL AST (10-42) IU/L ALT (10-60) IU/L Alkaline Phosphatase (42-121) IU/L Total Protein (6.7-8.2) g/dL Albumin (3.2-5.5) g/dL Globulin (2.1-4.2) g/dL Albumin/Globulin Ratio (1.0-2.2) Urine Creatinine 56.1 mg/dL Urine Sodium 47.0 mmol/L Crossmatch IS Only 08/10/20 Range/Units 08:40 WBC (4.8-10.8) x10^3/uL RBC (4.20-5.40) 10^6/uL Hgb (12.0-16.0) g/dL Hct (37.0-47.0) % MCV (81.0-99.0) fL MCH (27.0-31.0) pg MCHC (32.0-36.0) g/dL RDW (12.0-15.0) % Plt Count (130-450) 10^3/uL MPV (7.9-10.8) fL Neut # (Auto) (1.5-6.6) 10^3/uL Lymph # (Auto) (1.5-3.5) 10^3/uL [place] # (Auto) (0.0-1.0) 10^3/uL Eos # (Auto) (0.0-0.7) 10^3/uL Baso # (Auto) (0.0-0.1) 10^3/uL Absolute Nucleated RBC x10^3/uL Nucleated RBC % /100WBC Sodium (135-145) mmol/L Potassium (3.5-5.0) mmol/L Chloride (101-111) mmol/L Carbon Dioxide (21-32) mmol/L Anion Gap (6-13) BUN (6-20) mg/dL Creatinine (0.4-1.0) mg/dL Estimated GFR (MDRD) (>89) Glucose (70-100) mg/dL Calcium (8.5-10.3) mg/dL Total Bilirubin (0.2-1.0) mg/dL AST (10-42) IU/L ALT (10-60) IU/L Alkaline Phosphatase (42-121) IU/L Total Protein (6.7-8.2) g/dL Albumin (3.2-5.5) g/dL Globulin (2.1-4.2) g/dL Albumin/Globulin Ratio (1.0-2.2) Urine Creatinine mg/dL Urine Sodium mmol/L Crossmatch IS Only See Detail Assessment/Plan - Problem List (1) delivery delivered Impression: NEPH: Renal function improved and UOP wnl -DC Arenas this am -FeNA 0.62% PAIN: Managed with medications AMBULATION: Limited 2/2 abdominal motion. -Abdominal binder ordered ANEMIA: HCT 24. Adequate UOP Offered oral iron vs IV. Prefers IV IV to be replaced and dose today of ferric gluconate and a dose tomorrow Asymptomatic; no indication for transfusion at present. MILD TACHYCARDIA: Reports tachycardia at baseline -Sending TSH/BNP/CBC with IV placement -Cont to monitor -No symptoms OK to remove dressing this pm if desires shower
[2020-08-14] MEDS: FERRIC GLUCONATE 125 MG in SODIUM CHLORIDE 0.9% 100ML 100 ML IV SCH (11:54)
[2020-08-14 12:05] LABS: CALCIUM 8.1 mg/dL (8.5-10.3); POTASSIUM 3.5 mmol/L (3.5-5.0)
[2020-08-14 12:16] LABS: BASOPHILS # (AUTO) 0.1 10^3/uL (0.0-0.1); BASOPHILS % (AUTO) 0.4 %; EOSINOPHILS # (AUTO) 0.4 10^3/uL (0.0-0.7); EOSINOPHILS % (AUTO) 1.7 %; HCT - HEMATOCRIT 24.6 % (37.0-47.0); LYMPHOCYTES # (AUTO) 2.3 10^3/uL (1.5-3.5); LYMPHOCYTES % (AUTO) 11.1 %; MEAN CORPUSCULAR HEMOGLOBIN 31.3 pg (27.0-31.0); MEAN CORPUSCULAR HGB CONC 32.5 g/dL (32.0-36.0); MEAN CORPUSCULAR VOLUME 96.1 fL (81.0-99.0); MEAN PLATELET VOLUME 9.5 fL (7.9-10.8); MONOCYTES % (AUTO) 4.8 %; NEUTROPHILS # (AUTO) 16.1 10^3/uL (1.5-6.6); NEUTROPHILS % (AUTO) 78.7 %; PLT - PLATELET COUNT 206 10^3/uL (130-450); RED BLOOD COUNT 2.56 10^6/uL (4.20-5.40); RED CELL DISTRIBUTION WIDTH 16.8 % (12.0-15.0); WHITE BLOOD COUNT 20.4 x10^3/uL (4.8-10.8)
[2020-08-14 12:19] LABS: SLIDE REVIEW? Indicated
[2020-08-14 12:40] LABS: PLATELET MORPHOLOGY NORMAL APPEARANCE (NORMAL)
[2020-08-14 12:41] LABS: PLATELET ESTIMATE, MANUAL NORMAL (130-450,000) (NORMAL); RBC MORPHOLOGY (MULTIPLE) 2+ HYPOCHROMASIA (NORMAL)
[2020-08-15] MEDS: IBUPROFEN 600 MG TABLET PO SCH ×3 (00:42→12:00)
[2020-08-15] MEDS: ACETAMINOPHEN 500 MG TABLET PO SCH ×2 (02:46→10:31)
[2020-08-15] MEDS: oxyCODONE 5 MG TABLET PO PRN ×3 (02:46→10:31)
[2020-08-15 08:07] VITALS: BP 123/75
[2020-08-15] MEDS: DOCUSATE SODIUM 100 MG CAPSULE PO SCH (08:56)
[2020-08-15] MEDS: FERRIC GLUCONATE 125 MG in SODIUM CHLORIDE 0.9% 100ML 100 ML IV SCH (08:56)
[2020-08-15] MEDS ORDERED: FERRIC GLUCONATE 125 MG in SODIUM CHLORIDE 0.9% 100ML 100 ML IV ONE (09:40)
--- NOTE | 2020-08-15 10:50 | Discharge Plan ---
Discharge Plan Problem Reviewed?: Yes Disposition: Home, Self Care Condition: Good Prescriptions: Acetaminophen [Acetaminophen Extra Strength] 1,000 mg PO Q8H PRN #60 tablet PRN Reason: Pain Docusate Sodium 100Mg Capsule [Colace 100Mg Capsule] 100 - 200 mg PO BID PRN #60 cap PRN Reason: Constipation Ibuprofen [Motrin] 600 mg PO Q6H PRN #60 tab PRN Reason: Pain oxyCODONE [Roxicodone] 2.5 - 5 mg PO Q4H PRN #24 tablet PRN Reason: Severe Pain Diet: Regular Activity Restrictions: Additional Comments Shower Restrictions: No (No tub bath or hot tubs for 4 weeks) Plan of Treatment: Ibuprofen 600 mg by mouth every 6 hours as needed for pain Acetaminophen 500-1000 mg by mouth every 8 hours as needed for pain Docusate 100-200 mg by mouth twice a day as needed for constipation Oxycodone 2.5-5 mg by mouth every 4 hours as needed for pain Additional Instructions or Follow Up instructions: Nothing in the vagina for 6 weeks: No intercourse, tampons, douching Call for: -Fever greater than 100.5 -Pain that does not improve with pain medication -Heavy bleeding in which you are soaking a pad an hour for 2 hours in a row -Incision becomes hot, hard, red, starts to open, or leaks foul smelling fluid No lifting more than 10# for 4 [address] while on narcotics Ok to shower. Let water run over the incision. Do not soap, scrub, or apply lotion. Pat dry with a clean towel or use a geography department chair. The surgical stickers will start to peel off and you can remove them when they do. Otherwise, the provider will remove them at your one week follow-up appointment. OK to use an unscented sanitary napkin or clean washcloth to keep the incision dry if the belly folds over the incision. No Smoking: If you smoke, Please STOP! Call for help. Follow-up with: Rose Vann MD [Provider Admit Priv/Credential] -
--- NOTE | 2020-08-15 10:53 | PROVIDER PROGRESS NOTE ---
Subjective - Prog Note Date Prog Note Date: 08/15/20 Prog Note Time: 10:51 - Subjective Subjective: Patient is up and ambulating, tolerating po, and voiding. Pain is well managed with pain medications. UOP appropriate. Had second dose of IV iron this am. TSH 5.26 Objective - Vital Signs/Intake & Output Reviewed Vital Signs: Yes Vital Signs: Vital Signs x48h Temp Pulse Resp BP Pulse Ox 08/15/20 08:06 99.0 F 124 H 18 123/75 98 08/15/20 04:01 98.1 F 110 H 16 112/65 98 Intake & Output: Intake & Output 08/12/20 08/13/20 08/14/20 08/15/20 23:59 23:59 23:59 23:59 Intake Total 4652.033 2015.000 710 110 Output Total 660 2115 1750 Balance 3992.033 -100.000 -1040 110 - Objective General Appearance: positive: No acute distress Neck: positive: Nml inspection Respiratory: positive: No respiratory distress, Breath sounds nml Cardiovascular: positive: Other (Tachycardic but no symptoms, reg rhythm) Peripheral Pulses: 2+ Dorsalis pedis (R), 2+ Dorsalis pedis (L) Abdomen: positive: Non-tender, No distention, Other (Soft, ND, and non-tender. FF below umbi) Skin: positive: Color nml Extremities: positive: Non-tender, Pedal edema Neurologic/Psychiatric: positive: Oriented x3 - Lab Results Fish Bones: 08/14/20 12:10 08/14/20 11:30 Other Labs: Lab Results x24hrs 08/14/20 08/14/20 08/14/20 Range/Units 12:10 11:30 11:30 WBC 20.4 H (4.8-10.8) x10^3/uL RBC 2.56 L (4.20-5.40) 10^6/uL Hgb 8.0 L (12.0-16.0) g/dL Hct 24.6 L (37.0-47.0) % MCV 96.1 (81.0-99.0) fL MCH 31.3 H (27.0-31.0) pg MCHC 32.5 (32.0-36.0) g/dL RDW 16.8 H (12.0-15.0) % Plt Count 206 (130-450) 10^3/uL MPV 9.5 (7.9-10.8) fL Neut # (Auto) 16.1 H (1.5-6.6) 10^3/uL Lymph # (Auto) 2.3 (1.5-3.5) 10^3/uL Sumner # (Auto) 1.0 (0.0-1.0) 10^3/uL Eos # (Auto) 0.4 (0.0-0.7) 10^3/uL Baso # (Auto) 0.1 (0.0-0.1) 10^3/uL Absolute Nucleated RBC 0.00 x10^3/uL Nucleated RBC % 0.0 /100WBC Manual Slide Review Indicated WBC Morphology (NORMAL) Platelet Estimate NORMAL (130-450,000) (NORMAL) Platelet Morphology NORMAL APPEARANCE (NORMAL) RBC Morph Micro Appear 2+ HYPOCHROMASIA (NORMAL) Sodium 136 (135-145) mmol/L Potassium 3.5 (3.5-5.0) mmol/L Chloride 104 (101-111) mmol/L Carbon Dioxide 23 (21-32) mmol/L Anion Gap 9.0 (6-13) BUN 15 (6-20) mg/dL Creatinine 1.0 (0.4-1.0) mg/dL Estimated GFR (MDRD) 64 L (>89) Glucose 98 (70-100) mg/dL Calcium 8.1 L (8.5-10.3) mg/dL TSH 5.26 (0.34-5.60) uIU/mL - Other Results/Comments Other Results/Comments: INCISION: Dressing CDI. Removed. Incision line CDI. Steris in place. Assessment/Plan - Problem List (1) delivery delivered Impression: NEPH: Renal function improved and UOP wnl -Voiding PAIN: Managed with medications AMBULATION: -Abdominal binder ordered -Improved ambulation with binder. Moving beter. ANEMIA: HCT 24. Adequate UOP Offered oral iron vs IV. Prefers IV Received second dose this am No symptoms MILD TACHYCARDIA: Reports tachycardia at baseline -TSH 5.26; will reassess in pp period -IV iron to address anemia -Afebrile -No symptoms Dressing removed. Aftercare reviewed Meeting goals for discharge DC to home with fu within the week
--- NOTE | 2020-08-15 10:59 | DISCHARGE SUMMARY ---
"Discharge Summary Admit Date: 08/10/20 Discharge Date: 08/15/20 Discharging Provider: Soo Condition at Discharge: Good Discharge Disposition: 01 Home, Self Care - DIAGNOSES Admission Diagnoses: IUP at 39+0 wga Desires elective induction of labor Discharge Diagnoses with Status of Each Condition: Same and delivery of term gestation via for failure to progress Acute blood loss anemia Transient acute kidney injury; resolved - HPI History of Present Illness: -30yo admitted at 39.0wks gestation who presented to Labor and Delivery for pre-induction cervical ripening - care with [facility] which has been adequate after transfer from 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 Vertex by BSUS. EFW by carlee's 8# - CONSULTS | PROCEDURES Procedures: Primary low transverse - HOSPITAL COURSE Hospital Course: 30yo at 39.2 wks gestation who presented to Labor and Delivery for induction of labor. She had undergone 6 doses of misoprostol, pitocin, Arenas balloon, and second round pitocin after period of rest. Max dose of pitocin was 14 mU/min. SVE remained a 9/90/0 over 4 hours. IUPC was inserted and she was having adequate contractions. Membranes ruptured approximately 18 hours prior to delivery. With extended failure to progress, recommendation was to proceed with primary . Patient was in agreement. She had received several doses of ampicillin during her labor course ad cefazolin 2g IV x1 intraoperatively as per protocol for prophylaxis for . was notable for lateral extension on the uteirne incision with a challenging extraction of the . Fenale in vertex presentation, wedged deeply in pelvis. Apgars were 8/9 and weight was 8lb 2 oz. Edematous bladder. Bilateral paratubal cysts about 2-3 cm in diameter. Normal appearing uterus, fallopian tubes, and ovaries.EBL was 1200. Postoperative course was notable for increase in creatinine to 1.5 on POD#1 with borderline UOP and dark urine. Renal function and volume and appearance of urine volume improved with fluid bolus. Creatinine post op was 1.5, then 1.3, then 0.8, and then 1.0 after cessation of fluid administration. Postoperative HCT was 24.6. Patient was tachycardic but otherwise was without symptoms. She was offered tranfusion and opted for IV iron. She received ferric gluconate 125 mg once daily for 2 days. TSH was 5.26. She was meeting goals for discharge on POD#3. - ALLERGIES Allergies/Adverse Reactions: Allergies Allergy/AdvReac Type Severity Reaction Status Date / Time No Known Drug Allergies Allergy Verified 08/11/20 19:35 - MEDICATIONS Home Medications: Ambulatory Orders Medication Instructions Recorded Confirmed Aspirin [Aspirin EC] 81 mg PO DAILY 08/11/20 08/11/20 Pnv No.121/Iron/Folic Acid 1 each PO DAILY 08/11/20 08/11/20 [ Multivitamin Tablet] Valacyclovir HCl [Valtrex] 500 mg PO BID 08/11/20 08/11/20 Acetaminophen [Acetaminophen Extra 1,000 mg PO Q8H PRN #60 tablet 08/15/20 Strength] Docusate Sodium 100Mg Capsule 100 - 200 mg PO BID PRN #60 cap 08/15/20 [Colace 100Mg Capsule] Ibuprofen [Motrin] 600 mg PO Q6H PRN #60 tab 08/15/20 oxyCODONE [Roxicodone] 2.5 - 5 mg PO Q4H PRN #24 tablet 08/15/20 - LABS Result Diagrams: 08/14/20 12:10 08/14/20 11:30 - FOLLOW UP Follow Up: In one week with Dr. Vann - TIME SPENT Time Spent in Discharge (Minutes): 30"
--- NOTE | 2020-08-15 13:01 | Labor Flowsheet ---
Labor Flowsheet Datetime Report Generated by CPN: 08/15/2020 13:01 Datetime: 08/15/2020 04:01 VITAL SIGNS NBP Sys/Karol/Mean (mmHg): 112 : 65 : 75 Pulse: 116 LaborFlag: Labor Datetime: 08/13/2020 04:34 SpO2 (%): 100 Datetime: 08/12/2020 21:40 ASSESSMENT A Monitor Mode: Doppler FHR Baseline Rate : 144 Comments: doppler tones done in OR Datetime: 08/12/2020 21:22 Patient Care Comments: Pt removed from telemetry and wheeled to OR Datetime: 08/12/2020 21:15 Variability: Minimal - Undetectable to <=5 bpm Decelerations: None Category: Category I Datetime: 08/12/2020 21:09 Communication Comments: Dr. Vann at pt bedside to discuss c/s. Datetime: 08/12/2020 21:00 UTERINE ACTIVITY Monitor Mode: Internal Frequency (min): 1.5-5.5 Duration (sec): 70-110 Resting Tone (Palpate): Relaxed Resting Tone IUP (mmHg): 30 Intensity IUP (mmHg): 90 [place] Units (mmHg): 235 Pitocin Checklist: No More than 1 Late Deceleration Occurred in Past 30 Minutes; No More than 2 Yudi iable Decelerations > 60 Seconds in Duration and decreasing >60 bpm in 30 minutes; Uterus Palpates So ft between Contractions Accelerations: 15X15 Datetime: 08/12/2020 20:42 MEDICATIONS Pitocin (milliunits): Discontinued Datetime: 08/12/2020 20:30 Pattern: Normal: <= 5 Contractions in 10 Minutes Datetime: 08/12/2020 20:24 Contraction Comments: IUPC disconnected, flushed and zeroed Datetime: 08/12/2020 20:23 Temperature (C): 36.6 Datetime: 08/12/2020 20:00 FHR Baseline Changes: No Baseline Change Datetime: 08/12/2020 19:51 Provider Reviewed Strip: Yes Datetime: 08/12/2020 19:48 Patient Position/Activity: Left Lateral; Semi-Fowlers; Birthing Ball Datetime: 08/12/2020 19:41 Monitor Interventions for UA: IUPC Inserted Datetime: 08/12/2020 19:40 I/O Interventions: Clear Liquids Given Datetime: 08/12/2020 19:30 Oxygen Method: Room Air Datetime: 08/12/2020 19:20 ANESTHESIA Anesthesia Plans: Epidural Epidural Positioning: Side Lying Epidural Procedure Other: Redose Anesthesia Comments: Dequan Moss LICENSED OPTICAL DISPENSER at the bedside. Pump settings adjusted. Bolus given. Pat ient is now comfortable again. Datetime: 08/12/2020 19:15 Quality: Strong Datetime: 08/12/2020 19:11 Provider Notified (Name): Raina Sedan CNM/Dequan Moss LIC[employer]ED OPTICAL DISPENSER Datetime: 08/12/2020 19:10 COMMUNICATION Communication: Report Given to @ Mery and [place] Datetime: 08/12/2020 17:59 PATIENT CARE IV/Blood Work: IV Bolus Started Datetime: 08/12/2020 17:45 Stage of : Labor Respirations: 20 Temperature Route: Oral PAIN Pain Scale: 0 Pain Presence: None/Denies Datetime: 08/12/2020 17:43 Hygiene: Alyse Care; Underpad Changed Datetime: 08/12/2020 17:16 Antibiotics: Ampicillin IV 1 Gm Datetime: 08/12/2020 17:10 VAGINAL EXAM Dilatation (cm): 9.0 Station: -1 Exam by: Rebecca Longoria [facility] Vaginal Bleeding: Normal Show Cervix, Consistency: Moderate Vaginal Exam Comments: cervical rim felt along maternal left side. STAGE 2 Pushing: Urge to Push Pushing Position: Pushing with Contractions; Pushing Lithotomy Pushing Progress: Molding Noted Stage 2 Comments: 3 trial pushes. No movement in head. Cervix noted to maternal left side. Pushing efforts stopped Datetime: 08/12/2020 16:28 Analgesics/Sedatives: Benadryl (mg) @ 25 Datetime: 08/12/2020 16:03 Effacement (%): 90 Cervix, Position: Posterior Datetime: 08/12/2020 16:00 Anesthesia Level Check: T10- Umbilicus Datetime: 08/12/2020 15:51 Pain Type: Pressure Pain Assessment Comments: Feeling rectal pressure Datetime: 08/12/2020 15:34 Monitor Interventions for FHR: Ultrasound Adjusted Datetime: 08/12/2020 15:04 Pain Location: Back; Right Groin Comfort Measures: Breathing/Relaxation Datetime: 08/12/2020 14:40 Pain Relief Measures: Epidural Given Pain Coping: Requesting Pain Medication or Epidural Datetime: 08/12/2020 14:07 Membranes Ruptured Date/Time: 08/12/2020 02:30 Datetime: 08/12/2020 13:10 Antiemetics/Antacids: Zofran (mg) @ 4 Datetime: 08/12/2020 10:40 Medication Comments: Pitocin not increased as having regular contraction mod to strong to palpation Datetime: 08/12/2020 06:21 Notification Reason: Status Update; Labor Status Datetime: 08/12/2020 05:45 Epidural Procedure: Completed Datetime: 08/12/2020 05:13 TEACHING Instructional Method: Verbal; Patient Instructed; Family/Support Person Instructed; Verbalized Unde rstanding Unit Routine: Safety/Fall Risk Prevention Labor/Induction: Pushing Methods Pain Management: Epidural Datetime: 08/12/2020 03:13 Medications: Antibiotics Datetime: 08/12/2020 02:30 Membrane Status: Ruptured Membranes Rupture Method: Spontaneous Amniotic Fluid Color: Clear Amniotic Fluid Amount: Large Datetime: 08/12/2020 00:35 Teaching Comments: fall risk r/t ambien use reviewed Datetime: 08/11/2020 22:34 Cervical Ripening Agents: Arenas Balloon; Cytotec @ Datetime: 08/11/2020 22:30 Presentation 'A': Cephalic Datetime: 08/11/2020 22:22 Strip Reviewed by: H Sedan CNM Datetime: 08/11/2020 21:58 Plan of Care: Plan of Care Discussed; Vaginal Delivery Datetime: 08/11/2020 19:47 MATERNAL ASSESSMENT Level of Consciousness: Alert DTR's/Clonus: DTRs 2+; No Clonus Headache: Denies Breath Sounds, Left: Clear and Equal Breath Sounds, Right: Clear and Equal Nausea/Vomiting: Denies RUQ Epigastric Pain: Denies
== END 2020-08-15 13:00 | disposition home or self-care (01) | DRG 783 ==
LOC: WFO 07:47 → FBP 07:52 → WFO 08:50 → OBSVTOIN 20:15
PROVIDERS: ADMIT Advanced Practice Midwife; ATTEND Obstetrics & Gynecology
PROC: 10H07YZ Insertion of Other Device into Products of Conception, Via Natural or Artificial Opening (ICD-10-PCS; principal; 2020-08-11)
PROC: 10D00Z1 Extraction of Products of Conception, Low, Open Approach (ICD-10-PCS; 2020-08-12)
PROC: 0UB70ZZ Excision of Bilateral Fallopian Tubes, Open Approach (ICD-10-PCS; 2020-08-12)
DX: O62.0 Primary inadequate contractions (principal); O90.4 Postpartum acute kidney failure; O98.52 Other viral diseases complicating childbirth; D62 Acute posthemorrhagic anemia; N17.9 Acute kidney failure, unspecified; B00.9 Herpesviral infection, unspecified; Z3A.39 39 weeks gestation of pregnancy; Z37.0 Single live birth; O99.214 Obesity complicating childbirth; E66.01 Morbid (severe) obesity due to excess calories; O90.81 Anemia of the puerperium; O99.893 Other specified diseases and conditions complicating puerperium; R00.0 Tachycardia, unspecified
CPT/HCPCS: 36415; 80048; 80053; 82570; 84300; 84443; 85025; 86850; 86900; 86901; 86920; A9270; G0378; J0131; J1200; J2916; J7120

== ENCOUNTER 2020-08-16 13:26 | Outpatient (CLI) | payer OTHER ==
[2020-08-16 13:53] VITALS: BP 127/64
[2020-08-16 14:25] LABS: BASOPHILS % (AUTO) 0.5 %; EOSINOPHILS % (AUTO) 2.1 %; HCT - HEMATOCRIT 23.1 % (37.0-47.0); HGB - HEMOGLOBIN 7.5 g/dL (12.0-16.0); LYMPHOCYTES % (AUTO) 7.4 %; MEAN CORPUSCULAR HEMOGLOBIN 31.3 pg (27.0-31.0); MEAN CORPUSCULAR HGB CONC 32.5 g/dL (32.0-36.0); MEAN CORPUSCULAR VOLUME 96.3 fL (81.0-99.0); MEAN PLATELET VOLUME 9.2 fL (7.9-10.8); NEUTROPHILS % (AUTO) 78.9 %; PLT - PLATELET COUNT 260 10^3/uL (130-450); RED CELL DISTRIBUTION WIDTH 16.3 % (12.0-15.0); WHITE BLOOD COUNT 14.5 x10^3/uL (4.8-10.8)
[2020-08-16 14:30] LABS: SLIDE REVIEW? Indicated
--- NOTE | 2020-08-16 14:31 | PROVIDER PROGRESS NOTE ---
- HPI Chief Complaint: Other ( fever) Current : ID: Patient is a 30 yo about 5 days s/p LTCS after prolonged IOL and failure to progress. Patient reports that she was feeliing some malaise earlire today and checked her blood pressure. It was 99.4. About an hour later, its was 100.2. While in communication with the Call Service, it was reported at 102 degrees. Patient confirmes that she has not had a febrile temperature greater than 100.4 to date. She had a complicated with 1200 cc EBL and extensive lacerations. Bladder was thickened and edematous and urne was dark in the first 24 hours with borderline output. WBC had been elevated to 20 but patient never had a febrile temperature and never had lozalized area of discomfort other than aching at the lateral edges of her incision. At present, she also denies any localized discomfort. No dysuria, no breast tenderness, no abdominal pain, or leg pain. She does have BLE edema that was present at discharge but seem slightly worsened. Legs and feet are symmetrically edematous. Breast milk has not yet come in despite significant commitment to . No other concerns. Patient did receive 2 doses of IV iron prior to discharge for HCT 24. Declined transfusion and was without symptoms other than tachycardia. She received many doses of ampicillin during her labor course and a dose of cefazolin during her . Vital Signs Temperature 98.6 F 08/16/20 13:52 Heart Rate 121 H 08/16/20 13:52 Respiratory Rate 18 08/16/20 13:52 Blood Pressure 127/64 08/16/20 13:52 O2 Saturation 100 08/16/20 13:52 Temperature 98.6 F 08/16/20 13:52 Heart Rate 121 H 08/16/20 13:52 Respiratory Rate 18 08/16/20 13:52 Blood Pressure 127/64 08/16/20 13:52 O2 Saturation 100 08/16/20 13:52 - Exam GEN: NAD HEENT: NCAT. No scleral icterus or conjunctival injections BREAST: patient conducted brief self exam without evidence of TTP CV: tachycardic RESP: normal effort ABD: Soft and NT/ND. FF fifm at umbi with no marked TTP SKIN: Edema over panniculus and mild erythema at the most dependent portion but no TTP Incision; CDI with steris in place, No TTP and no erythema, induration, warmth EXT: WWP. 2-3+ pitting edema in BLE, no calf tenderness and edema is symmetric PSYCH: appropriate affect NEURO: A&O - Procedures NST Procedure: NST Procedure Start Time 08:00 Stop Time 08:40 ERROR- NST NOT PERFORMED Service Date of procedure: 08/16/20 - Plan Plan: POST ELEVATION IN TEMPERATURE: Reports as 102 at home. Temp was actually 100.2. Normal temp on presentation However, patient had a complicated labor course and a challenging WBC was 20 but no febrile temperature Had also been tachycardic at discharge with no febrile temp and no concerning symptoms Anemic with IV iron x2 prior to DC Multiple risk factors for infection -Not meeting criteria for admission in absence of febrile temperature and has had substantial IV abx exposure while in-patient -Sending CBC, CMP, blood cultures, and UA and culture -In the absence of abnormal labwork, will cont with outpatient observation. CMP pending WBC improved at 14.5; lower than WBC at admission for IOL Ibuprofen 600 mg po x1 given as patient was post due for medications
[2020-08-16 14:35] LABS: ALBUMIN 2.2 g/dL (3.2-5.5); ALBUMIN/GLOBULIN RATIO 0.6 (1.0-2.2); BILIRUBIN,TOTAL 0.3 mg/dL (0.2-1.0); CALCIUM 8.3 mg/dL (8.5-10.3); CREATININE 0.8 mg/dL (0.4-1.0); POTASSIUM 3.4 mmol/L (3.5-5.0); TOTAL PROTEIN 6.1 g/dL (6.7-8.2)
[2020-08-16] MEDS ORDERED: IBUPROFEN 600 MG TABLET PO SCH ×2 (15:00→18:00)
[2020-08-16 15:08] LABS: ABNORMAL LYMPHS % (MANUAL) 0 %
[2020-08-16 15:10] LABS: BAND NEUTROPHILS % (MANUAL) 4 %; EOSINOPHILS # (MANUAL) 0.4 10^3/uL (0-0.7); LYMPHOCYTES # (MANUAL) 1.5 10^3/uL (1.5-3.5); LYMPHOCYTES % (MANUAL) 10 %; METAMYELOCYTES % (MANUAL) 1 %; MONOCYTES # (MANUAL) 0.7 10^3/uL (0.0-1.0); NEUTROPHILS # (MANUAL) 11.7 10^3/uL (1.5-6.6)
[2020-08-16 15:15] LABS: DIFFERENTIAL COMMENT MANUAL DIFFERENTIAL; PLATELET ESTIMATE, MANUAL NORMAL (130-450,000) (NORMAL); PLATELET MORPHOLOGY 1+ GIANT PLATELETS (NORMAL); WBC MORPHOLOGY (MULTIPLE) NORMAL APPEARANCE (NORMAL)
[2020-08-16 16:01] LABS: BILIRUBIN,URINE NEGATIVE (NEGATIVE); GLUCOSE, URINE (UA) NEGATIVE (NEGATIVE); KETONES,URINE (UA) NEGATIVE (NEGATIVE); LEUKOCYTE ESTERASE, URINE TRACE (NEGATIVE); NITRITE,URINE NEGATIVE (NEGATIVE); OCCULT BLOOD,URINE LARGE (NEGATIVE); PROTEIN,URINE 30 mg/dL (NEGATIVE); UROBILINOGEN,URINE 0.2 (NORMAL) E.U./dL (NORMAL)
[2020-08-16 16:10] LABS: CLARITY,URINE HAZY (CLEAR); RBC,URINE TNTC /HPF (0-5)
[2020-08-16 16:11] LABS: BACTERIA,URINE Rare /HPF (None Seen); SQUAMOUS EPITHELIAL CELL,UR FEW Squamous (<= Few)
--- NOTE | 2020-08-16 16:59 | Labor Flowsheet ---
Labor Flowsheet Datetime Report Generated by CPN: 08/16/2020 16:58 Datetime: 08/16/2020 13:33 VITAL SIGNS NBP Sys/Karol/Mean (mmHg): 127 : 64 : 85 Pulse: 121 LaborFlag: Labor Datetime: 08/13/2020 04:34 SpO2 (%): 100 Datetime: 08/12/2020 21:40 ASSESSMENT A Monitor Mode: Doppler FHR Baseline Rate : 144 Comments: doppler tones done in OR Datetime: 08/12/2020 21:22 Patient Care Comments: Pt removed from telemetry and wheeled to OR Datetime: 08/12/2020 21:15 Variability: Minimal - Undetectable to <=5 bpm Decelerations: None Category: Category I Datetime: 08/12/2020 21:09 Communication Comments: Dr. Vann at pt bedside to discuss c/s. Datetime: 08/12/2020 21:00 UTERINE ACTIVITY Monitor Mode: Internal Frequency (min): 1.5-5.5 Duration (sec): 70-110 Resting Tone (Palpate): Relaxed Resting Tone IUP (mmHg): 30 Intensity IUP (mmHg): 90 [place] Units (mmHg): 235 Pitocin Checklist: No More than 1 Late Deceleration Occurred in Past 30 Minutes; No More than 2 Yudi iable Decelerations > 60 Seconds in Duration and decreasing >60 bpm in 30 minutes; Uterus Palpates So ft between Contractions Accelerations: 15X15 Datetime: 08/12/2020 20:42 MEDICATIONS Pitocin (milliunits): Discontinued Datetime: 08/12/2020 20:30 Pattern: Normal: <= 5 Contractions in 10 Minutes Datetime: 08/12/2020 20:24 Contraction Comments: IUPC disconnected, flushed and zeroed Datetime: 08/12/2020 20:23 Temperature (C): 36.6 Datetime: 08/12/2020 20:00 FHR Baseline Changes: No Baseline Change Datetime: 08/12/2020 19:51 Provider Reviewed Strip: Yes Datetime: 08/12/2020 19:48 Patient Position/Activity: Left Lateral; Semi-Fowlers; Birthing Ball Datetime: 08/12/2020 19:41 Monitor Interventions for UA: IUPC Inserted Datetime: 08/12/2020 19:40 I/O Interventions: Clear Liquids Given Datetime: 08/12/2020 19:30 Oxygen Method: Room Air Datetime: 08/12/2020 19:20 ANESTHESIA Anesthesia Plans: Epidural Epidural Positioning: Side Lying Epidural Procedure Other: Redose Anesthesia Comments: Dequan Moss MATHS TUTOR at the bedside. Pump settings adjusted. Bolus given. Pat ient is now comfortable again. Datetime: 08/12/2020 19:15 Quality: Strong Datetime: 08/12/2020 19:11 Provider Notified (Name): Raina Edgewater CNM/Dequan Moss MATHS TUTOR Datetime: 08/12/2020 19:10 COMMUNICATION Communication: Report Given to @ Mery and [place] Datetime: 08/12/2020 17:59 PATIENT CARE IV/Blood Work: IV Bolus Started Datetime: 08/12/2020 17:45 Stage of : Labor Respirations: 20 Temperature Route: Oral PAIN Pain Scale: 0 Pain Presence: None/Denies Datetime: 08/12/2020 17:43 Hygiene: Alyse Care; Underpad Changed Datetime: 08/12/2020 17:16 Antibiotics: Ampicillin IV 1 Gm Datetime: 08/12/2020 17:10 VAGINAL EXAM Dilatation (cm): 9.0 Station: -1 Exam by: Rebecca Longoria [facility] Vaginal Bleeding: Normal Show Cervix, Consistency: Moderate Vaginal Exam Comments: cervical rim felt along maternal left side. STAGE 2 Pushing: Urge to Push Pushing Position: Pushing with Contractions; Pushing Lithotomy Pushing Progress: Molding Noted Stage 2 Comments: 3 trial pushes. No movement in head. Cervix noted to maternal left side. Pushing efforts stopped Datetime: 08/12/2020 16:28 Analgesics/Sedatives: Benadryl (mg) @ 25 Datetime: 08/12/2020 16:03 Effacement (%): 90 Cervix, Position: Posterior Datetime: 08/12/2020 16:00 Anesthesia Level Check: T10- Umbilicus Datetime: 08/12/2020 15:51 Pain Type: Pressure Pain Assessment Comments: Feeling rectal pressure Datetime: 08/12/2020 15:34 Monitor Interventions for FHR: Ultrasound Adjusted Datetime: 08/12/2020 15:04 Pain Location: Back; Right Groin Comfort Measures: Breathing/Relaxation Datetime: 08/12/2020 14:40 Pain Relief Measures: Epidural Given Pain Coping: Requesting Pain Medication or Epidural Datetime: 08/12/2020 14:07 Membranes Ruptured Date/Time: 08/12/2020 02:30 Datetime: 08/12/2020 13:10 Antiemetics/Antacids: Zofran (mg) @ 4 Datetime: 08/12/2020 10:40 Medication Comments: Pitocin not increased as having regular contraction mod to strong to palpation Datetime: 08/12/2020 06:21 Notification Reason: Status Update; Labor Status Datetime: 08/12/2020 05:45 Epidural Procedure: Completed Datetime: 08/12/2020 05:13 TEACHING Instructional Method: Verbal; Patient Instructed; Family/Support Person Instructed; Verbalized Unde rstanding Unit Routine: Safety/Fall Risk Prevention Labor/Induction: Pushing Methods Pain Management: Epidural Datetime: 08/12/2020 03:13 Medications: Antibiotics Datetime: 08/12/2020 02:30 Membrane Status: Ruptured Membranes Rupture Method: Spontaneous Amniotic Fluid Color: Clear Amniotic Fluid Amount: Large Datetime: 08/12/2020 00:35 Teaching Comments: fall risk r/t ambien use reviewed Datetime: 08/11/2020 22:34 Cervical Ripening Agents: Arenas Balloon; Cytotec @ Datetime: 08/11/2020 22:30 Presentation 'A': Cephalic Datetime: 08/11/2020 22:22 Strip Reviewed by: H Edgewater CNM Datetime: 08/11/2020 21:58 Plan of Care: Plan of Care Discussed; Vaginal Delivery Datetime: 08/11/2020 19:47 MATERNAL ASSESSMENT Level of Consciousness: Alert DTR's/Clonus: DTRs 2+; No Clonus Headache: Denies Breath Sounds, Left: Clear and Equal Breath Sounds, Right: Clear and Equal Nausea/Vomiting: Denies RUQ Epigastric Pain: Denies
== END 2020-08-16 16:10 | disposition home or self-care (01) ==
LOC: WFO 13:26 → FBP 13:28 → WFO 16:10
PROVIDERS: ATTEND Obstetrics & Gynecology
DX: O86.4 Pyrexia of unknown origin following delivery (principal); O90.89 Other complications of the puerperium, not elsewhere classified; R60.0 Localized edema
CPT/HCPCS: 36415; 80053; 81001; 85025; 87040; 87086; 87150; 87181; A9270

== ENCOUNTER 2020-08-18 22:37 | Observation (INO) | payer OTHER ==
--- NOTE | 2020-08-18 22:41 | ED Physician Documentation ---
PD HPI DYSPNEA - Stated complaint Stated Complaint: SOA, CHEST PRESSURE, HEADACE - History obtained from History obtained from: Patient - History of Present Illness Timing - onset: How many days ago (1-2 days of increasing dyspnea and worse we akness, with feeling of some tightness left chest today. She is 6 days post c- section with significant blood loss, and has had Hgb followed often. Had fevers 2 days ago and had blood culture from 08/16 just grow out E.Coli today. Pt was started on oral abx.) Timing - onset during: Rest, Light activity Timing - duration: Days (1-2 days of dyspnea and some chest tightness. Has had weakness since c-sec 6 days ago and feverish 2-3 days ago, but not today.) Timing - details: Gradual onset, Still present Inciting event(s): Other (6 days post , anemic, with still vaginal bleeding. Had recent fever and has positive blood culture from 08/16/20.). No: Out of meds, URI Associated symptoms: Chest pain / discomfort, Bilateral edema (at end of and still continues). No: Cough, Hemoptysis, Wheezing Recently seen: Clinic (2 days ago on follow up), Surgery (had with notably blood loss 6 days ago, is anemic with slowly decreasing Hgb since the delivery.) Review of Systems Constitutional: reports: Fever (2 days ago, not since), Fatigue Nose: denies: Rhinorrhea / runny nose, Congestion Throat: denies: Sore throat Cardiac: reports: Chest pain / pressure (pressure left chest), Pedal edema (at the end of and still persistent, both legs with swellng.). denies: Palpitations, Calf pain Respiratory: reports: Dyspnea. denies: Cough GI: reports: Nausea. denies: Vomiting, Diarrhea : reports: Vaginal bleeding (has still some post vaginal bleeding, but is decreasing.). denies: Dysuria, Discharge Skin: denies: Rash, Lesions Musculoskeletal: reports: Back pain. denies: Neck pain Neurologic: reports: Generalized weakness. 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 ) Musculoskeletal: Scoliosis (slight) - Past Surgical History Past Surgical History: No - Present Medications Home Medications: Ambulatory Orders Medication Instructions Recorded Confirmed Pnv No.121/Iron/Folic Acid 1 each PO DAILY 08/11/20 08/18/20 [ Multivitamin Tablet] Valacyclovir HCl [Valtrex] 500 mg PO BID 08/11/20 08/18/20 Acetaminophen [Acetaminophen Extra 1,000 mg PO Q8H PRN #60 tablet 08/15/20 08/18/20 Strength] Docusate Sodium 100Mg Capsule 100 - 200 mg PO BID PRN #60 cap 08/15/20 08/18/20 [Colace 100Mg Capsule] Ibuprofen [Motrin] 600 mg PO Q6H PRN #60 tab 08/15/20 08/18/20 oxyCODONE [Roxicodone] 2.5 - 5 mg PO Q4H PRN #24 tablet 08/15/20 08/18/20 - Allergies Allergies/Adverse Reactions: Allergies Allergy/AdvReac Type Severity Reaction Status Date / Time No Known Drug Allergies Allergy Verified 08/18/20 22:42 - Social History Smoking Status: Never smoker PD ED PE NORMAL - Vitals Vital signs reviewed: Yes (normal heart rate, temp and sats) - General General: Alert and oriented X 3, No acute distress, Well developed/nourished - HEENT HEENT: Pharynx benign - Neck Neck: Supple, no meningeal sign, No adenopathy - Cardiac Cardiac: RRR, No murmur - Respiratory Respiratory: Clear bilaterally - Abdomen Abdomen: Normal bowel sounds, Soft, Non distended, No organomegaly, Other (Csection incision without signs of infection.) - Female Female : Deferred - Back Back: No CVA TTP - Derm Derm: Normal color, No rash, Other (breasts without signs of mastitis. ) Results - Vitals Vitals: Vital Signs - 24 hr 08/18/20 08/18/20 08/19/20 22:42 22:47 00:12 Temperature 36.8 C 36.8 C 36.8 C Heart Rate 70 70 66 Respiratory 16 16 21 Rate Blood Pressure 132/90 H 127/71 131/75 H O2 Saturation 100 100 100 Oxygen O2 Source Room air - Labs Labs: Laboratory Tests 08/18/20 08/18/20 08/18/20 23:20 23:20 23:20 WBC 14.7 H RBC 2.42 L Hgb 7.3 L Hct 23.4 L MCV 96.7 MCH 30.2 MCHC 31.2 L RDW 16.2 H Plt Count 401 MPV 9.3 Neut # (Auto) Not Reportable Lymph # (Auto) Not Reportable [place] # (Auto) Not Reportable Eos # (Auto) Not Reportable Baso # (Auto) Not Reportable Absolute Nucleated RBC Not Reportable Total Counted 100 Band Neuts % (Manual) 15 H Abnorm Lymph % (Manual) 0 Metamyelocytes % 2 H Myelocytes % 2 H Nucleated RBC % Not Reportable Neutrophils # (Manual) 12.3 H Lymphocytes # (Manual) 1.0 L Monocytes # (Manual) 0.6 Eosinophils # (Manual) 0.1 Basophils # (Manual) 0.0 Differential Comment MANUAL DIFFERENTIAL WBC Morphology 1+ TOXIC GRANULATION Platelet Estimate NORMAL (130-450,000) RBC Morph Micro Appear NORMAL APPEARANCE Sodium 136 Potassium 3.6 Chloride 102 Carbon Dioxide 23 Anion Gap 11.0 BUN 15 Creatinine 0.9 Estimated GFR (MDRD) 73 L Glucose 82 Calcium 8.4 L Total Bilirubin 0.5 AST 23 ALT 23 Alkaline Phosphatase 142 H B-Natriuretic Peptide 351 H Total Protein 6.5 L Albumin 2.3 L Globulin 4.2 Albumin/Globulin Ratio 0.5 L Lipase 18 L Blood Type Antibody Screen Crossmatch IS Only 08/19/20 00:40 WBC RBC Hgb Hct MCV MCH MCHC RDW Plt Count MPV Neut # (Auto) Lymph # (Auto) [place] # (Auto) Eos # (Auto) Baso # (Auto) Absolute Nucleated RBC Total Counted Band Neuts % (Manual) Abnorm Lymph % (Manual) Metamyelocytes % Myelocytes % Nucleated RBC % Neutrophils # (Manual) Lymphocytes # (Manual) Monocytes # (Manual) Eosinophils # (Manual) Basophils # (Manual) Differential Comment WBC Morphology Platelet Estimate RBC Morph Micro Appear Sodium Potassium Chloride Carbon Dioxide Anion Gap BUN Creatinine Estimated GFR (MDRD) Glucose Calcium Total Bilirubin AST ALT Alkaline Phosphatase B-Natriuretic Peptide Total Protein Albumin Globulin Albumin/Globulin Ratio Lipase Blood Type O POSITIVE Antibody Screen NEGATIVE Crossmatch IS Only See Detail - Rads (name of study) chest xray Radiology: Prelim report reviewed (no acute process), See rad report chest angio Radiology: Prelim report reviewed (no PE, no acute process. ), See rad report PD MEDICAL DECISION MAKING - ED course Complexity details: reviewed results (CXR clear. had blood culture positive for e.coli today from 08/16 and started on Levaquin?, no fevers the past 2 days. ), re-evaluated patient (Chest CT did not show any blood clots nor other acute process. She is increasingly anemic and presume her dyspnea and weakness are from that. She does not look septic at this time and had just started antibiotics today. ), considered differential (worse anemia, dyspnea post consider PE. CXR clear, get CT chest. Discuss with DRILLING FLUIDS SPECIALIST. ), d/w patient, d/w hospice care consultant (Talked with Dr. Tay who is on-call who felt based on the patient's symptoms that likely anemia is the main cause as she does not look septic nor any pneumonia and without any PEs.) Departure - Departure Disposition: ED Place in Observation Clinical Impression: state Chest pain Qualifiers: Chest pain type: precordial pain Qualified Code(s): R07.2 - Precordial pain Dyspnea Qualifiers: Dyspnea type: shortness of breath Qualified Code(s): R06.02 - Shortness of breath Anemia Qualifiers: Anemia type: other cause Other causes of anemia: acute posthemorrhagic Qualified Code(s): D62 - Acute posthemorrhagic anemia Condition: Stable Discharge Date/Time: 08/19/20 02:06
[2020-08-18] MEDS ORDERED: KETOROLAC 30 MG/ML VIAL IVP STA (23:11)
[2020-08-18] MEDS ORDERED: SODIUM CHLORIDE 0.9% 1,000 ML IV STA ×2 (23:11→23:45)
[2020-08-18 23:28] LABS: BASOPHILS % (AUTO) 0.5 %; RED CELL DISTRIBUTION WIDTH 16.2 % (12.0-15.0)
[2020-08-18 23:32] LABS: EOSINOPHILS % (AUTO) 1.4 %; HCT - HEMATOCRIT 23.4 % (37.0-47.0); HGB - HEMOGLOBIN 7.3 g/dL (12.0-16.0); LYMPHOCYTES % (AUTO) 16.6 %; MEAN CORPUSCULAR HEMOGLOBIN 30.2 pg (27.0-31.0); MEAN CORPUSCULAR HGB CONC 31.2 g/dL (32.0-36.0); MEAN CORPUSCULAR VOLUME 96.7 fL (81.0-99.0); MEAN PLATELET VOLUME 9.3 fL (7.9-10.8); MONOCYTES % (AUTO) 7.7 %; NEUTROPHILS % (AUTO) 62.9 %; PLT - PLATELET COUNT 401 10^3/uL (130-450); RED BLOOD COUNT 2.42 10^6/uL (4.20-5.40); WHITE BLOOD COUNT 14.7 x10^3/uL (4.8-10.8)
[2020-08-18 23:36] LABS: ABNORMAL LYMPHS % (MANUAL) 0 %
[2020-08-18 23:43] LABS: ALBUMIN 2.3 g/dL (3.2-5.5); ALBUMIN/GLOBULIN RATIO 0.5 (1.0-2.2); BILIRUBIN,TOTAL 0.5 mg/dL (0.2-1.0); CALCIUM 8.4 mg/dL (8.5-10.3); CREATININE 0.9 mg/dL (0.4-1.0); POTASSIUM 3.6 mmol/L (3.5-5.0); TOTAL PROTEIN 6.5 g/dL (6.7-8.2)
[2020-08-19 00:09] LABS: BAND NEUTROPHILS % (MANUAL) 15 %; EOSINOPHILS # (MANUAL) 0.1 10^3/uL (0-0.7); LYMPHOCYTES % (MANUAL) 7 %; METAMYELOCYTES % (MANUAL) 2 %; MONOCYTES # (MANUAL) 0.6 10^3/uL (0.0-1.0); MYELOCYTES % (MANUAL) 2 %; NEUTROPHILS # (MANUAL) 12.3 10^3/uL (1.5-6.6); RBC MORPHOLOGY (MULTIPLE) NORMAL APPEARANCE (NORMAL)
[2020-08-19 00:10] LABS: DIFFERENTIAL COMMENT MANUAL DIFFERENTIAL; PLATELET ESTIMATE, MANUAL NORMAL (130-450,000) (NORMAL); WBC MORPHOLOGY (MULTIPLE) 1+ TOXIC GRANULATION (NORMAL)
[2020-08-19] MEDS ORDERED: IOPAMIDOL-300 100 ML VIAL ONE (00:54)
[2020-08-19] MEDS ORDERED: diphenhydrAMINE 25 MG CAPSULE PO ONE (01:30)
[2020-08-19] MEDS ORDERED: ACETAMINOPHEN 325 MG TABLET PO ONE (01:30)
[2020-08-19] MEDS ORDERED: IOPAMIDOL-300 100 ML VIAL IVP ONE (01:34)
--- NOTE | 2020-08-19 01:40 | HISTORY & PHYSICAL EXAMINATION ---
HPI - History of Present Illness HPI Comment/Other: CC: chest pain HPI: Mild MULLEN, chest pain, and SOB since yesterday. MULLEN is bilateral frontal. Chest pain is substernal, worse on the right, mild, not worse with activity. SOB is mild, can happen at rest, not worse with activity, feels like she needs to take more deep breaths from time to time. She was told to call PRN problems. Patient has had a complicated delivery and course. Underwent elective IOL at 39w which was prolonged. Eventually required on 08/12 for failure to progress at 9cm and 0 station. was complicated by a uterine extension and hemorrhage EBL 1200cc. She also had borderline urine output and an increased Cr which spontaneously resolved post delivery. On 08/16 was seen for a fever at home of unknown etiology. Patient was afebrile here. Her blood cultures returned e.coli on 08/18 and so she was started on levaquin 750mg daily. PMH: obesity, sleep apnea PSH: on 08/12/20. [place] teeth. FH: DM and sleep apnea SH: no t/e/d Allergies: NKDA Meds: PNV daily, levaquin 750mg daily, oxycodone, ibuprofen, tylenol ROS: No fevers, ill contacts, covid contacts, mood problems, probs with ambulation, cough, hemoptysis, nausea, vomiting, constipation, dysuria, hematuria, or heavy vaginal bleeding. Has had significant LE edema unchanged since . 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 Social & Family Hx - Social History Does the pt smoke?: No Smoking Status: Never smoker Does the pt drink ETOH?: No Does the pt have substance abuse?: No Meds/Allgy - Home Medications Home Medications: Ambulatory Orders Medication Instructions Recorded Confirmed Pnv No.121/Iron/Folic Acid 1 each PO DAILY 08/11/20 08/18/20 [ Multivitamin Tablet] Valacyclovir HCl [Valtrex] 500 mg PO BID 08/11/20 08/18/20 Acetaminophen [Acetaminophen Extra 1,000 mg PO Q8H PRN #60 tablet 08/15/20 08/18/20 Strength] Docusate Sodium 100Mg Capsule 100 - 200 mg PO BID PRN #60 cap 08/15/20 08/18/20 [Colace 100Mg Capsule] Ibuprofen [Motrin] 600 mg PO Q6H PRN #60 tab 08/15/20 08/18/20 oxyCODONE [Roxicodone] 2.5 - 5 mg PO Q4H PRN #24 tablet 08/15/20 08/18/20 - Allergies Allergies/Adverse Reactions: Allergies Allergy/AdvReac Type Severity Reaction Status Date / Time No Known Drug Allergies Allergy Verified 08/18/20 22:42 Exam - Vital Signs Reviewed Vital Signs: Yes Vital Signs: Vital Signs x48h Temp Pulse Resp BP Pulse Ox 08/19/20 00:12 98.2 F 66 21 131/75 H 100 08/18/20 22:47 98.2 F 70 16 127/71 100 08/18/20 22:42 98.2 F 70 16 132/90 H 100 - Physical Exam General Appearance: positive: No acute distress Eyes Bilateral: positive: EOMI Respiratory: positive: Breath sounds nml Cardiovascular: positive: Regular rate & rhythm, No murmur Abdomen: positive: Non-tender Skin: positive: Color nml Extremities: positive: Pedal edema (2+) Neurologic/Psychiatric: positive: Mood/affect nml, Other (Normal gait) Results - Lab Results Fish Bones: 08/18/20 23:20 08/18/20 23:20 Other Lab Results: Lab Results x24hrs 08/18/20 08/18/20 08/18/20 Range/Units 23:20 23:20 23:20 WBC 14.7 H (4.8-10.8) x10^3/uL RBC 2.42 L (4.20-5.40) 10^6/uL Hgb 7.3 L (12.0-16.0) g/dL Hct 23.4 L (37.0-47.0) % MCV 96.7 (81.0-99.0) fL MCH 30.2 (27.0-31.0) pg MCHC 31.2 L (32.0-36.0) g/dL RDW 16.2 H (12.0-15.0) % Plt Count 401 (130-450) 10^3/uL MPV 9.3 (7.9-10.8) fL Neut # (Auto) Not Reportable Lymph # (Auto) Not Reportable [place] # (Auto) Not Reportable Eos # (Auto) Not Reportable Baso # (Auto) Not Reportable Absolute Nucleated RBC Not Reportable Total Counted 100 Band Neuts % (Manual) 15 H (0 - 10) % Abnorm Lymph % (Manual) 0 % Metamyelocytes % 2 H ( - 0) % Myelocytes % 2 H ( - 0) % Nucleated RBC % Not Reportable Neutrophils # (Manual) 12.3 H (1.5-6.6) 10^3/uL Lymphocytes # (Manual) 1.0 L (1.5-3.5) 10^3/uL Monocytes # (Manual) 0.6 (0.0-1.0) 10^3/uL Eosinophils # (Manual) 0.1 (0-0.7) 10^3/uL Basophils # (Manual) 0.0 (0-0.1) 10^3/uL Differential Comment MANUAL DIFFERENTIAL WBC Morphology 1+ TOXIC GRANULATION (NORMAL) Platelet Estimate NORMAL (130-450,000) (NORMAL) RBC Morph Micro Appear NORMAL APPEARANCE (NORMAL) Sodium 136 (135-145) mmol/L Potassium 3.6 (3.5-5.0) mmol/L Chloride 102 (101-111) mmol/L Carbon Dioxide 23 (21-32) mmol/L Anion Gap 11.0 (6-13) BUN 15 (6-20) mg/dL Creatinine 0.9 (0.4-1.0) mg/dL Estimated GFR (MDRD) 73 L (>89) Glucose 82 (70-100) mg/dL Calcium 8.4 L (8.5-10.3) mg/dL Total Bilirubin 0.5 (0.2-1.0) mg/dL AST 23 (10-42) IU/L ALT 23 (10-60) IU/L Alkaline Phosphatase 142 H (42-121) IU/L B-Natriuretic Peptide 351 H (5-100) pg/mL Total Protein 6.5 L (6.7-8.2) g/dL Albumin 2.3 L (3.2-5.5) g/dL Globulin 4.2 (2.1-4.2) g/dL Albumin/Globulin Ratio 0.5 L (1.0-2.2) Lipase 18 L (22-51) U/L - Diagnostic Imaging Results Diagnostic Imaging Results: positive: Prelim report reviewed Diagnostic Imaging Results Comments: CXR normal Chest CT normal Impression/Plan - Problem List Problem List: 30yo P1 7d s/p primary for failure to progress, complicated by hemorrhage, anemia, and e.coli bacteremia. Now with symptomatic acute blood loss anemia (due to acute blood loss with her --no abnormal bleeding currently) causing MULLEN, CP, and SOB. Patient's Hct is overall stable--was 24/6 at discharge and is 23.4 today. Admit to obs, transfuse 1U PRBC and re-eval. If still symptomatic then would transfuse another unit. Patient is s/p 2 doses of IV Fe given prior to her delivery discharge. E.coli bacteremia symptomatic on 08/16 and levaquin started 08/18--no current signs or symptoms of infection. Continue levaquin. Senstivities are not resulted yet. Chest pain and SOB: likely due to anemia. Normal CXR and chest CT. VS normal. Doubt pulmonary, cardiac, or VTE sources of pain.
[2020-08-19 02:35] LABS: B. PARAPERTUSSIS- RESP PCR PAN NOT DETECTED; B. PERTUSSIS- RESP PCR PANEL NOT DETECTED; C. PNEUMONIAE- RESP PCR PANEL NOT DETECTED; CORONAVIRUS 229E-RESP PCR NOT DETECTED; CORONAVIRUS HKU1-RESP PCR NOT DETECTED; CORONAVIRUS NL63-RESP PCR NOT DETECTED; CORONAVIRUS OC43-RESP PCR NOT DETECTED; HUMAN METAPNEUMOVIRUS NOT DETECTED; INFLUENZA A- RESP PCR PANEL NOT DETECTED; INFLUENZA B - RESP PCR PANEL NOT DETECTED; M. PNEUMONIAE- RESP PCR PANEL NOT DETECTED; PARAINFLUENZA VIRUS 1 NOT DETECTED; PARAINFLUENZA VIRUS 2 NOT DETECTED; PARAINFLUENZA VIRUS 3 NOT DETECTED; PARAINFLUENZA VIRUS 4 NOT DETECTED; RHINOVIRUS/ENTEROVIRUS NOT DETECTED; RSV- RESP PCR PANEL NOT DETECTED; SARS-CoV-2 -RESP PCR PANEL NOT DETECTED
[2020-08-19] MEDS ORDERED: oxyCODONE 5 MG TABLET PO PRN (02:44)
--- NOTE | 2020-08-19 07:14 | CT Report ---
PROCEDURE: ANGIO CHEST W/WO INDICATIONS: chest pain/dyspnea, 6 days CONTRAST: IV CONTRAST: Isovue 300 ml: 80 PO CONTRAST: *NO PO CONTRAST TECHNIQUE: After the administration of intravenous contrast, 2 mm thick sections acquired from the pulmonary api ed to the posterior costophrenic angles. 3-dimensional maximum intensity projection (MIP) coronal a nd sagittal reformats were then acquired through the thorax. For radiation dose reduction, the follow ing was used: automated exposure control, adjustment of mA and/or kV according to patient size. COMPARISON: Chest x-ray 08/18/2020 FINDINGS: Image quality: Excellent. Pulmonary arteries: Pulmonary arteries are normal in size, and demonstrate no intraluminal filling d efects to suggest central pulmonary embolism. 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 Lungs and pleura: Lungs are clear. Mild septal prominence noted in the lung bases bilaterally. No pl eural effusions or pneumothorax. Central and peripheral airways are patent. Mediastinum: Heart is is at the upper limits of normal for size without pericardial effusion. No me diastinal or hilar adenopathy. Thoracic aorta is normal in caliber and enhancement. Esophagus is no rmal in caliber, without hiatal hernia. Bones and chest wall: No suspicious bony lesions. Ribs and thoracic spine appear intact throughout. The thyroid is normal. No axillary or supraclavicular adenopathy. Abdomen: Small amount of ascites noted adjacent to the right lobe of the liver and spleen. Visualize d upper abdominal solid organs appear normal in the early arterial phase of enhancement. IMPRESSION: 1. No pulmonary embolus. 2. No lung consolidation or pleural effusions. 3. Small amount of ascites adjacent to the liver and spleen of uncertain etiology. 3. Mild bibasilar septal prominence. Finding is nonspecific may be related to pulmonary edema/fluid o verload. Reviewed by: Kelly Mondragon MD, PhD on 08/19/2020 7:13 AM PDT Approved by: Kelly Mondragon MD, PhD on 08/19/2020 7:13 AM PDT Station ID: [id number]
--- NOTE | 2020-08-19 07:34 | PHARMACY PROGRESS NOTE ---
- Best Possible Medication History Admit Date and Time: 08/19/20 0131 Processed by: Nursing Medication History completed: Yes Patient Interview: Completed Secondary Source(s): Physician records, Pharmacy records, Insurance records (MED REC COMPLETED BY NURSING ) As the person ultimately responsible for medication therapy, providers are able to order a medication from an existing home medication list in [facility] via the "Reconcile Routine" prior to Confirmation of that medication by call center support representative. Such practice is discouraged except when the physician, in their clinical judgment, deems that a medical need exists for a medication without regard to previous use.
[2020-08-19 08:05] VITALS: BP 131/83
--- NOTE | 2020-08-19 08:20 | XRAY Report ---
PROCEDURE: Chest 1 View X-Ray INDICATIONS: Chest Pain TECHNIQUE: One view of the chest was acquired. COMPARISON: None. FINDINGS: Surgical changes and devices: None. Lungs and pleura: No pleural effusions or pneumothorax. Lungs are clear. Mediastinum: Mediastinal contours appear normal. Heart size is normal. Bones and chest wall: No suspicious bony lesions. Overlying soft tissues appear unremarkable. IMPRESSION: Normal for age, source of current symptoms is not seen. Reviewed by: Sheng Patel MD on 08/19/2020 8:19 AM PDT Approved by: Sheng Patel MD on 08/19/2020 8:19 AM PDT Station ID: [id number]
== END 2020-08-19 08:05 | disposition home or self-care (01) ==
LOC: ED 22:37 → MS2 08-19 01:31
PROVIDERS: ADMIT Obstetrics & Gynecology; ATTEND Obstetrics & Gynecology
DX: D62 Acute posthemorrhagic anemia (principal)
CPT/HCPCS: 0202U; 36415; 36430; 71045; 71275; 80053; 83690; 83880; 85025; 86850; 86900; 86901; 86920; 93005; 96361; 96374; 99284; 99285; A9270; G0378; P9016; Q9967

== ENCOUNTER 2020-09-10 16:07 | Emergency (ER) | payer OTHER ==
--- OUTSIDE RECORDS SUMMARY | 2020-09-10 16:10 | EXTERNAL MEDICAL SUMMARY RPT | Continuity of Care Document ---
:1990 Demographics Phone Unavailable Preferred Language Unknown Marital Status Unknown Hindu Affiliation Unknown Race Unknown Ethnic Group Unknown Author Organization [place] Address [address] [phone] Phone Allergies Encounters Medications Problems Results
--- OUTSIDE RECORDS SUMMARY | 2020-09-10 16:17 | EXTERNAL MEDICAL SUMMARY RPT | Continuity of Care Document ---
:1990 Demographics Phone Unavailable Preferred Language Unknown Marital Status Unknown Confucianist Affiliation Unknown Race Unknown Ethnic Group Unknown Author Organization [place] Address [address] [phone] Phone Allergies Encounters Medications Problems Results
[2020-09-10 18:05] LABS: BASOPHILS # (AUTO) 0.1 10^3/uL (0.0-0.1); BASOPHILS % (AUTO) 0.9 %; EOSINOPHILS # (AUTO) 0.6 10^3/uL (0.0-0.7); EOSINOPHILS % (AUTO) 6.8 %; HCT - HEMATOCRIT 36.2 % (37.0-47.0); HGB - HEMOGLOBIN 11.6 g/dL (12.0-16.0); LYMPHOCYTES # (AUTO) 3.1 10^3/uL (1.5-3.5); MEAN CORPUSCULAR HEMOGLOBIN 30.1 pg (27.0-31.0); MEAN CORPUSCULAR VOLUME 93.8 fL (81.0-99.0); MEAN PLATELET VOLUME 8.4 fL (7.9-10.8); MONOCYTES # (AUTO) 0.5 10^3/uL (0.0-1.0); MONOCYTES % (AUTO) 5.4 %; NEUTROPHILS # (AUTO) 4.4 10^3/uL (1.5-6.6); NEUTROPHILS % (AUTO) 50.4 %; PLT - PLATELET COUNT 375 10^3/uL (130-450); RED BLOOD COUNT 3.86 10^6/uL (4.20-5.40); RED CELL DISTRIBUTION WIDTH 15.1 % (12.0-15.0); WHITE BLOOD COUNT 8.7 x10^3/uL (4.8-10.8)
--- NOTE | 2020-09-10 18:13 | ED Physician Documentation ---
History of Present Illness - Stated complaint Stated Complaint: POST OP COMPLICATIONS - Chief complaint Chief Complaint: Wound - Additonal information Additional information: 30-year-old female presents the emergency department for evaluation of concerns that her incision may be opening up. She delivered via 08/12/2020. She did have a prolonged labor and delivery requiring induction as well as postoperative bleeding requiring blood transfusion. She reports that over the last 24 hours she has been having increasing pain on the left side of the incision as well as tingling. This morning she noted a little bit of blood on the lateral edge of the wound and felt it had opened up a bit. She has not had any fevers vomiting or diarrhea. She did have some bright red vaginal bleeding this morning but none since. She denies pelvic pain vomiting. Review of Systems Constitutional: denies: Fever, Chills Eyes: reports: Reviewed and negative Ears: reports: Reviewed and negative Nose: reports: Reviewed and negative Throat: reports: Reviewed and negative Cardiac: reports: Reviewed and negative Respiratory: reports: Reviewed and negative GI: reports: Abdominal Pain. denies: Nausea, Vomiting : denies: Dysuria, Frequency Skin: reports: Other (Low pelvic transverse see section incision intact with the exception of the left lateral edge which is mildly open with subcutaneous tissue visible. No surrounding erythema or induration. 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 ) Musculoskeletal: Scoliosis (slight) - Past Surgical History Past Surgical History: No /BELT WORKER: section - Present Medications Home Medications: Ambulatory Orders Medication Instructions Recorded Confirmed Ferrous Gluconate 324 mg PO DAILY 09/10/20 09/10/20 Lactobacillus Acidophilus 1 each PO DAILY 09/10/20 09/10/20 [Probiotic Acidophilus] - Allergies Allergies/Adverse Reactions: Allergies Allergy/AdvReac Type Severity Reaction Status Date / Time No Known Drug Allergies Allergy Verified 09/10/20 16:23 - Social History Does the pt smoke?: No Smoking Status: Never smoker Does the pt drink ETOH?: No Does the pt have substance abuse?: No - Immunizations Immunizations are current?: Yes Results - Vitals Vitals: Vital Signs - 24 hr 09/10/20 16:19 Temperature 36.3 C L Heart Rate 88 Respiratory 16 Rate Blood Pressure 134/79 H O2 Saturation 99 Oxygen O2 Source Room air - Labs Labs: Laboratory Tests 09/10/20 09/10/20 09/10/20 18:01 18:01 18:01 WBC 8.7 RBC 3.86 L Hgb 11.6 L Hct 36.2 L MCV 93.8 MCH 30.1 MCHC 32.0 RDW 15.1 H Plt Count 375 MPV 8.4 Neut # (Auto) 4.4 Lymph # (Auto) 3.1 [place] # (Auto) 0.5 Eos # (Auto) 0.6 Baso # (Auto) 0.1 Absolute Nucleated RBC 0.00 Nucleated RBC % 0.0 Sodium 138 Potassium 3.9 Chloride 105 Carbon Dioxide 26 Anion Gap 7.0 BUN 19 Creatinine 1.0 Estimated GFR (MDRD) 64 L Glucose 79 Lactic Acid 1.4 Calcium 9.2 Total Bilirubin 0.6 AST 22 ALT 24 Alkaline Phosphatase 119 Total Protein 7.5 Albumin 3.9 Globulin 3.6 Albumin/Globulin Ratio 1.1 Lipase 30 - Rads (name of study) Limited pelvic US Radiology: See rad report, Other (Per 3d technologist at a depth of approximately 3.5 cm there is a 2 x 2 x 4 cm fluid collection most consistent with a hematoma.) PD MEDICAL DECISION MAKING - ED course Complexity details: reviewed results, re-evaluated patient, d/w patient, d/w knowledge management consultant (Becky) ED course: 30-year-old female presents emergency department for evaluation of her incision. She had a very complicated delivery and delivered via August 12, 2020. She comes to the ER today with some increased pain on the lateral side of the incision where it has begun to open up just minimally. She also felt a tingling in her lateral abdomen. She denies focal abdominal pain or any fevers. No dysuria urgency or frequency. Screening labs today show no leukocytosis nor an elevated lactate. She has no fever or vital sign derangement. The left lateral edge of the wound has opened very minorly revealing a small amount of subcutaneous tissue but there is no surrounding erythema or drainage. I have recommended to patient that she should wash daily with warm soap and water and apply a thin antibiotic ointment. We did do a limited ultrasound to evaluate for fluid and seroma collection and unfortunately we do see a rather large 2 x 2 x 4 cm fluid collection. It is most consistent with a hematoma. This case was discussed with on-call diesel technician Dr. Pena. Given the well appearance of this patient without fevers or leukocytosis he would not recommend drainage at this time. He would like the patient continue to follow-up with Dr. Vann. Emergent return precautions were discussed for worsening symptoms. Departure - Departure Disposition: 01 Home, Self Care Clinical Impression: Visit for wound check, Hematoma Condition: Stable Record reviewed to determine appropriate education?: Yes Instructions: ED Hematoma Follow-Up: Rose Vann MD [Primary Care Provider] - Comments: [place] your incision today looks rather good. It is not infected. As we discussed please wash the incision with warm soap and water twice daily and pat dry with a clean towel. I would recommend that you apply any antibiotic ointment such as Neosporin or bacitracin to the open edge of the wound. This should heal with time. We did do an ultrasound looking for a fluid collection under your incision and we do see what we suspect is a hematoma. Most hematomas will resolve on their own. We do not suspect infection at this time however if you are having increasing pain, develop any fevers or have drainage from your incision it is important that you return to the ER immediately. Continue to follow-up with Dr. Vann as an outpatient.
[2020-09-10 18:19] LABS: ALBUMIN 3.9 g/dL (3.2-5.5); ALBUMIN/GLOBULIN RATIO 1.1 (1.0-2.2); BILIRUBIN,TOTAL 0.6 mg/dL (0.2-1.0); CALCIUM 9.2 mg/dL (8.5-10.3); POTASSIUM 3.9 mmol/L (3.5-5.0); TOTAL PROTEIN 7.5 g/dL (6.7-8.2)
[2020-09-10 20:14] VITALS: BP 126/90
--- NOTE | 2020-09-10 20:41 | Ultrasound Report ---
PROCEDURE: Pelvic Limited or F/U INDICATIONS: EVAL FOR SEROMA UNDER C -SECTION INCISION TECHNIQUE: Real-time transabdominal scanning was performed evaluating the region at and near the incis ion. COMPARISON: None. FINDINGS: At the left aspect of the incision is a hypoechoic complex focus with mild hyperemia measur ing 2.3 x 2.1 x 4.6 cm. It is approximately 3.4 cm deep to the skin. IMPRESSION: There is a small focal fluid collection approximately 3.4 cm deep to the skin, at the le ft aspect of the incision. Consider hematoma versus urinoma versus abscess. Reviewed by: Brannon Omalley MD on 09/10/2020 8:39 PM PDT Approved by: Brannon Omalley MD on 09/10/2020 8:39 PM PDT Station ID: [id number]
== END 2020-09-10 20:12 | disposition home or self-care (01) ==
LOC: ED 16:07
DX: O90.89 Other complications of the puerperium, not elsewhere classified (principal); L76.32 Postprocedural hematoma of skin and subcutaneous tissue following other procedure; Y83.8 Other surgical procedures as the cause of abnormal reaction of the patient, or of later complication, without mention of misadventure at the time of the procedure
CPT/HCPCS: 36415; 80053; 83605; 83690; 85025; 99282; 99284

== ENCOUNTER 2021-03-08 07:05 | Emergency (ER) | payer OTHER ==
[2021-03-08] MEDS ORDERED: SODIUM CHLORIDE 0.9% 1,000 ML IV STA (07:24)
--- NOTE | 2021-03-08 07:27 | ED Physician Documentation ---
PD HPI ABD PAIN - Stated complaint Stated Complaint: ABDOMINAL PAIN IN R SIDE - Chief complaint Chief Complaint: Abd Pain - History obtained from History obtained from: Patient - Additional information Additional information: Is a 31-year-old female presenting to the emergency department with right lower quadrant abdominal pain that began last night. Reports pain woke her from sleep and was associated with nausea without vomiting. Denies previous pain similar to this in the past. He does report history of section but denies other abdominal surgeries. Denies diarrhea, constipation, dysuria, vaginal discharge. Pain is improved from last night however is still exacerbated by movement. Last p.o. intake was a granola bar this morning at 6 AM. Review of Systems Ten Systems: 10 systems reviewed and negative Constitutional: denies: Fever Cardiac: denies: Chest pain / pressure Respiratory: denies: Dyspnea GI: reports: Abdominal Pain, Nausea. denies: Vomiting, Constipation, Diarrhea : denies: Dysuria PD PAST MEDICAL HISTORY - Past Medical History Cardiovascular: None Respiratory: None GI: None VASCULAR ULTRASOUND TECHNOLOGIST: Other (6 days post ) Musculoskeletal: Scoliosis (slight) - Past Surgical History Past Surgical History: No /VASCULAR ULTRASOUND TECHNOLOGIST: section - Present Medications Home Medications: Ambulatory Orders Medication Instructions Recorded Confirmed HYDROcod/ACETAM 5/325 [Severance 5/325] 1 - 2 ea PO Q6H PRN #14 tablet 03/08/21 Sertraline HCl 100 mg PO DAILY 03/08/21 03/08/21 - Allergies Allergies/Adverse Reactions: Allergies Allergy/AdvReac Type Severity Reaction Status Date / Time No Known Drug Allergies Allergy Verified 09/10/20 16:23 - Social History Does the pt smoke?: No Smoking Status: Never smoker Does the pt drink ETOH?: No Does the pt have substance abuse?: No - Immunizations Immunizations are current?: Yes PD ED PE NORMAL - Vitals Vital signs reviewed: Yes - General General: Alert and oriented X 3 - HEENT HEENT: Atraumatic - Neck Neck: Supple, no meningeal sign - Respiratory Respiratory: No respiratory distress - Female Female : Deferred - Rectal Rectal: Deferred - Extremities Extremities: No deformity - Neuro Neuro: Alert and oriented X 3, reconstructive surgeon 2-12 intact, No motor deficit PD ED PE EXPANDED - Abdomen Abdomen: Normal Bowel sounds, Tender to palpation, RLQ. No: Distended, Rebound, Guarding, Mass Results - Vitals Vitals: Vital Signs - 24 hr 03/08/21 03/08/21 07:19 09:21 Temperature 36.6 C 36.6 C Heart Rate 86 70 Respiratory 16 16 Rate Blood Pressure 116/80 108/79 O2 Saturation 98 100 Oxygen O2 Source Room air - Labs Labs: Laboratory Tests 03/08/21 03/08/21 03/08/21 07:13 07:38 07:38 WBC 12.5 H RBC 4.71 Hgb 14.0 Hct 43.0 MCV 91.3 MCH 29.7 MCHC 32.6 RDW 14.4 Plt Count 365 MPV 9.0 Neut # (Auto) 8.8 H Lymph # (Auto) 2.5 Bailey # (Auto) 0.6 Eos # (Auto) 0.4 Baso # (Auto) 0.1 Absolute Nucleated RBC 0.00 Nucleated RBC % 0.0 Sodium 135 Potassium 3.9 Chloride 101 Carbon Dioxide 25 Anion Gap 9.0 BUN 12 Creatinine 0.9 Estimated GFR (MDRD) 72 L Glucose 86 Lactic Acid Calcium 9.1 Total Bilirubin 0.8 AST 17 ALT 17 Alkaline Phosphatase 94 Total Protein 7.6 Albumin 4.0 Globulin 3.6 Albumin/Globulin Ratio 1.1 Lipase 31 HCG, Quant Urine Color YELLOW Urine Clarity SL. CLOUDY Urine pH 6.5 Ur Specific [place] 1.020 Urine Protein NEGATIVE Urine Glucose (UA) NEGATIVE Urine Ketones NEGATIVE Urine Occult Blood NEGATIVE Urine Nitrite NEGATIVE Urine Bilirubin NEGATIVE Urine Urobilinogen 0.2 (NORMAL) Ur Leukocyte Esterase SMALL H Urine RBC 0-5 Urine WBC 6-10 H Ur Squamous Epith Cells MANY Squamous H Urine Bacteria Few Ur Microscopic Review INDICATED Urine Culture Comments NOT INDICATED 03/08/21 03/08/21 07:38 07:38 WBC RBC Hgb Hct MCV MCH MCHC RDW Plt Count MPV Neut # (Auto) Lymph # (Auto) Bailey # (Auto) Eos # (Auto) Baso # (Auto) Absolute Nucleated RBC Nucleated RBC % Sodium Potassium Chloride Carbon Dioxide Anion Gap BUN Creatinine Estimated GFR (MDRD) Glucose Lactic Acid 1.3 Calcium Total Bilirubin AST ALT Alkaline Phosphatase Total Protein Albumin Globulin Albumin/Globulin Ratio Lipase HCG, Quant < 0.60 Urine Color Urine Clarity Urine pH Ur Specific [place] Urine Protein Urine Glucose (UA) Urine Ketones Urine Occult Blood Urine Nitrite Urine Bilirubin Urine Urobilinogen Ur Leukocyte Esterase Urine RBC Urine WBC Ur Squamous Epith Cells Urine Bacteria Ur Microscopic Review Urine Culture Comments PD MEDICAL DECISION MAKING - ED course Complexity details: reviewed results, re-evaluated patient, d/w patient ED course: Is a 31-year-old female presenting to the emergency department with right lower quadrant abdominal pain x12 hours. Afebrile, hemoglobin stable on arrival to the emergency department. Was offered medication for pain which she declined. Did have some mild right lower quadrant tenderness to palpation. Labs obtained demonstrated a very minimal leukocytosis without significant bandemia. CT abdomen pelvis identified a normal appearing appendix however did identify a right right-sided ovarian cyst. Follow-up ultrasonography demonstrated an uncomplicated hemorrhagic cyst without indications of ischemia or interruption of blood flow to the ovary. Patient reevaluated multiple times and found to be resting comfortably and in no acute distress. At this time will discharge for follow-up with primary care as needed. Otherwise clear return precautions and follow-up instructions given prior to discharge. Departure - Departure Disposition: 01 Home, Self Care Clinical Impression: Cyst of ovary Condition: Fair Instructions: Cysts Ovarian Follow-Up: MARY CONTEH PA-C [Primary Care Provider] - Prescriptions: HYDROcod/ACETAM 5/325 [Severance 5/325] 1 - 2 ea PO Q6H PRN #14 tablet PRN Reason: Pain Comments: Thank you for allowing us to care for you today at [facility]. All of the test performed in the emergency department today were very reassuring. The ultrasound did show a small, uncomplicated hemorrhagic cyst. This is highly likely to resolve on its own over the course of the next few days. Please follow-up with your primary care physicians special education educational assistant is soon as possible in order to make an appointment for medical recheck if needed. I will be discharging you with some medication to take for pain. This will be available at in [place]. If it anytime you have any new or worsening symptoms please do not hesitate to return to the emergency department.
[2021-03-08 07:38] LABS: BILIRUBIN,URINE NEGATIVE (NEGATIVE); GLUCOSE, URINE (UA) NEGATIVE (NEGATIVE); KETONES,URINE (UA) NEGATIVE (NEGATIVE); LEUKOCYTE ESTERASE, URINE SMALL (NEGATIVE); NITRITE,URINE NEGATIVE (NEGATIVE); OCCULT BLOOD,URINE NEGATIVE (NEGATIVE); PH,URINE 6.5 PH (5.0-7.5); PROTEIN,URINE NEGATIVE (NEGATIVE); UROBILINOGEN,URINE 0.2 (NORMAL) E.U./dL (NORMAL)
[2021-03-08 07:42] LABS: BASOPHILS # (AUTO) 0.1 10^3/uL (0.0-0.1); BASOPHILS % (AUTO) 0.6 %; EOSINOPHILS # (AUTO) 0.4 10^3/uL (0.0-0.7); EOSINOPHILS % (AUTO) 3.3 %; LYMPHOCYTES # (AUTO) 2.5 10^3/uL (1.5-3.5); LYMPHOCYTES % (AUTO) 20.4 %; MEAN CORPUSCULAR HEMOGLOBIN 29.7 pg (27.0-31.0); MEAN CORPUSCULAR HGB CONC 32.6 g/dL (32.0-36.0); MEAN CORPUSCULAR VOLUME 91.3 fL (81.0-99.0); MONOCYTES # (AUTO) 0.6 10^3/uL (0.0-1.0); MONOCYTES % (AUTO) 5.1 %; NEUTROPHILS # (AUTO) 8.8 10^3/uL (1.5-6.6); NEUTROPHILS % (AUTO) 70.2 %; PLT - PLATELET COUNT 365 10^3/uL (130-450); RED BLOOD COUNT 4.71 10^6/uL (4.20-5.40); RED CELL DISTRIBUTION WIDTH 14.4 % (12.0-15.0); WHITE BLOOD COUNT 12.5 x10^3/uL (4.8-10.8)
[2021-03-08 07:45] LABS: CLARITY,URINE SL. CLOUDY (CLEAR); SQUAMOUS EPITHELIAL CELL,UR MANY Squamous (<= Few)
[2021-03-08 07:46] LABS: BACTERIA,URINE Few /HPF (None Seen); RBC,URINE 0-5 /HPF (0-5)
[2021-03-08 07:59] LABS: ALBUMIN/GLOBULIN RATIO 1.1 (1.0-2.2); BILIRUBIN,TOTAL 0.8 mg/dL (0.2-1.0); CALCIUM 9.1 mg/dL (8.5-10.3); CREATININE 0.9 mg/dL (0.4-1.0); POTASSIUM 3.9 mmol/L (3.5-5.0); TOTAL PROTEIN 7.6 g/dL (6.7-8.2)
[2021-03-08] MEDS ORDERED: IOVERSOL 320 100 ML VIAL IVP ONE ×2 (08:08→08:25)
--- NOTE | 2021-03-08 08:37 | CT Report ---
PROCEDURE: Abdomen/Pelvis W INDICATIONS: RLQ abd pain x 12 hours CONTRAST: IV CONTRAST: Optiray 320 ml: 100 PO CONTRAST: *NO PO CONTRAST TECHNIQUE: After the administration of intravenous contrast, 5 mm thick sections acquired from the diaphragms to the symphysis. 5 mm thick coronal and sagittal reformats were acquired. For radiation dose reducti on, the following was used: automated exposure control, adjustment of mA and/or kV according to noah ent size. COMPARISON: Abdominal ultrasound 09/10/2020. CT pulmonary angiogram 08/19/2020. FINDINGS: Image quality: Excellent. ABDOMEN: Lung bases: Lung bases are clear. Heart size is normal. Solid organs: Liver and spleen are normal in size and enhancement. Gallbladder is not distended. No calcified gallstones. Biliary system is non dilated. Pancreas enhances normally. No adrenal nodul es. Kidneys demonstrate normal size and enhancement, without hydronephrosis. Peritoneum and bowel: Bowel loops demonstrate normal wall thickness and caliber. The appendix is no t dilated. There is air within the lumen of the appendix, (). No free fluid or air. Nodes and vessels: No retroperitoneal or mesenteric adenopathy by size criteria. Aorta and inferior vena cava are normal in size. Miscellaneous: Tiny umbilical hernia. PELVIS: Genitourinary: Bladder wall thickness is normal. Right ovarian cyst measuring 2.9 cm, (). Fulln ess in the region of the right adnexa. Anteverted uterus. section scar. No fluid collection. Miscellaneous: No inguinal hernias or adenopathy. Bones: No suspicious bony lesions. No vertebral body compression fractures. IMPRESSION: 1. Right ovarian cyst measuring 2.9 cm. This could be a source of pain. Consider further evaluation w ith pelvic ultrasound. 2. The appendix appears normal. Reviewed by: Mehdi Seo MD on 03/08/2021 8:36 AM PST Approved by: Mehdi Seo MD on 03/08/2021 8:36 AM PST Station ID: [id number]
[2021-03-08 09:46] VITALS: BP 108/79
--- NOTE | 2021-03-08 11:19 | Ultrasound Report ---
PROCEDURE: Pelvic Complete INDICATIONS: Evaluation of right ovarian cyst TECHNIQUE: Real-time transabdominal scanning was performed of the pelvic organs, with image documentation. COMPARISON: Reference is made to the CT pelvis of same day. FINDINGS: UTERUS: Anteverted, predominantly homogeneous echotexture, and measures 10.4 x 4.1 x 5.9 cm. The endometrial thickness measures 14.1 mm. RIGHT OVARY: 5.4 x 3.8 x 3.3 cm. Color-flow projects over the ovarian tissue. An echogenic lesion is seen within the right ovary, measuring up to 3.3 cm, which may reflect an endometrioma or hemorrhagic cyst. LEFT OVARY: Nonvisualized. OTHER: None. IMPRESSION: 1.Echogenic lesion within the right ovary, which may represent an endometrioma or hemorrhagic cyst. C onsider sonographic follow-up in 4-6 weeks to ensure decreasing size or resolution as clinically andria anted. Reviewed by: Reji Blanca MD on 03/08/2021 11:18 AM PST Approved by: Reji Blanca MD on 03/08/2021 11:18 AM PST Station ID: [id number]
== END 2021-03-08 10:17 | disposition home or self-care (01) ==
LOC: ED 07:05
DX: N83.201 Unspecified ovarian cyst, right side (principal)
CPT/HCPCS: 36415; 74177; 76856; 80053; 81001; 83605; 83690; 84702; 85025; 99283; 99284; Q9967; 81003; 87086